=== PATIENT | female | born 1990 | race Caucasian/White ===

== ENCOUNTER 2022-07-01 07:35 | Day surgery (SDC) | payer OTHER, SELFPAY ==
[2022-07-01] VITALS (12 sets, daily range): BP systolic 106–136; BP diastolic 58–84; PULSE 70–116; RESP 16; TEMP 36.6–36.9; O2SAT 93–99; BMI 37.2
[2022-07-01 07:54] LABS: Ur HCG Qualitative* Negative (Negative)
[2022-07-01] MEDS: LACTATED RINGERS 1000 ML 1,000 ML 100 ML IV ×2 (08:15→10:30)
[2022-07-01] MEDS: SODIUM CHLORIDE 0.9 % (FLUSH) 10 ML SYRINGE IVF (08:15)
[2022-07-01] MEDS: SCOPOLAMINE 1 MG/3 DAY PATCH 1 PATCH TRANSDERMA (08:25)
[2022-07-01] MEDS: CEFAZOLIN 2 GM INJ IVP (09:15)
[2022-07-01] MEDS: BUPIVACAINE 0.25% 30 ML 4 ML INJECTION (09:38)
--- NOTE | 2022-07-01 11:19 | P.GYNPRC_ITS ---
Procedure Note Date Seen: 07/01/22 Procedure Details: PREOPERATIVE DIAGNOSES: 1. Infertility. 2. Left hydrosalpinx. POSTOPERATIVE DIAGNOSES: 1. Infertility. 2. Left hydrosalpinx. 3. Tortuous right fallopian tube with possible hydrosalpinx. PROCEDURE: 1. Laparoscopy. 2. Lysis of adhesions. 3. Bilateral salpingectomies. 4. Endometrial biopsy. SURGEON: [facility] [employer]: [place]. ANESTHESIA: General endotracheal. COMPLICATIONS: None. ESTIMATED BLOOD LOSS: 10 mL. FINDINGS: Extensive pelvic adhesions involving uterine serosa, sigmoid colon, bilateral ovaries, and bilateral fallopian tubes, obliterating posterior cul-de-sac. Tortuous fallopian tubes bilaterally, folded on each other and tethered with adhesions to uterine serosa, ovaries, and pelvic sidewall. Clubbed end of the left fallopian tube noted, with small paratubal cyst adjacent. Fimbria adherent to right ovary and tethered to the posterior cul-de-sac. Normal-appearing liver, gallbladder, and appendix. Enlarged left ovary containing simple cyst. Bilateral ovaries adherent to posterior uterine serosa and pelvic sidewall. DESCRIPTION OF PROCEDURE: After obtaining informed consent, the patient was taken to the operating room where general anesthesia was obtained without difficulty. She was prepared and draped in the normal sterile fashion in the low dorsal lithotomy position. A Andrade catheter was inserted into the bladder and left to gravity drainage. A medium Graves open-sided speculum was introd uced into the vagina. The cervix was visualized and grasped along its anterior lip with a single-toothed synechia. A Pipelle was gently inserted through the cervical os into the uterine cavity. Sound length was 8 cm. An endometrial sampling was then obtained without difficulty. The cervix was gently dilated to a number 5 Hegar dilator. A Zumi uterine manipulator was placed without difficulty. The tenaculum and speculum were removed. I then changed gloves and my attention was turned to the abdomen. The inferior aspect of the umbilical fold was injected with 0.25% Marcaine plain. A 10 mm vertical incision was then made within the umbilical fold using a scalpel. The subcutaneous tissues were bluntly dissected with a Roseanne clamp to the fascia. The fascia was grasped with 2 small Ehsan clamps and elevated. A direct entry technique was used to place a 5 mm laparoscopic port with CO2 gas set to a 5 mmHg. The trocar was removed leaving the sleeve in place. The CO2 gas flow was turned to high flow to achieve pneumoperitoneum. The 5 mm laparoscope was used then to carefully inspect the abdomen and pelvis with findings noted above. Pictures were taken for documentation purposes. The patient was placed in Trendelenburg positioning. Two additional 5 mm ports were placed in the right and left lower quadrant under direct visualization after first anesthetizing the skin and fascia with 0.25% Marcaine plain. The uterus was elevated using the uterine manipulator. The bowels were gently pushed from the pelvis cephalad. A laparoscopic Metzenbaum scissors was used to gently lyse the filmy adhesions between the sigmoid colon and posterior uterine serosa. As a layer of adhesions was taken down, another layer would come in to view and was also carefully lysed with the Metzenbaum scissors. In this fashion, the sigmoid colon was freed from the uterus and the posterior cul-de-sac was visualized. Both fallopian tubes were noted to be mildly dilated, tortuous with multiple bends, completely adherent to the uterine serosa and the underlying ovary as well as to sigmoid epiploica, and the fimbrial ends could not be not visualized initially. Attention was 1st turned to the right fallopian tube, and the decision was made that the tube would need to be removed. The tube was elevated. Filmy adhesions were carefully lysed. E ventrally, the right ovary became visible, and the fimbrial end of the tube was located, adherent to the right ovary. The fimbria and the remaining fallopian tube was then carefully excised using the Olympus Powerseal, while keeping the right infundibulopelvic ligament and right ovarian ligament in view. The tube was transected at the right uterine cornua and removed through the right lower quadrant port site. The right lower quadrant port was replaced in the abdomen. Attention was then turned to the left fallopian tube. Again, the Metzenbaum scissors was used to lyse adhesions in order to free the tube. Adhesions were also completely encompassing the left ovary, so those adhesions were carefully taken down as well. Ultimately, the clubbed end of the left fallopian tube was identified, with an adjacent paratubal cyst. The paratubal cyst and tube were elevated with a graspers, and the Olympus Powerseal was used to gently excise the entire tube, finally transecting it from the left cornua. Great care was taken to avoid the left infundibulopelvic ligament and left ovarian ligament in order to preserve blood supply to the ovary. The tube and paratubal cyst removed through the right quadrant port site, and the port was once again replaced into the abdomen. The abdomen and pelvis were then copiously irrigated with warmed normal saline. There was a little bit of active oozing noted from the adhesions on the uterine serosa. These were controlled with the bipolar electrocautery using the Olympus Powerseal. All instruments were then removed under direct visualization. Pneumoperitoneum was allowed to escape. The skin at all 3 port sites was closed in a subcuticular fashion with 4-0 Vicryl. Exofin was then placed over the incisions. The uterine manipulator and Andrade catheter were removed. The patient tolerated the procedure well. Sponge, lap, and needle counts were correct x2. The patient was taken to the recovery room awake and in stable condition.
[2022-07-01] MEDS: HYDROmorphone 0.5 mg/0.5 ml inj IVP (11:29)
--- NOTE | 2022-07-01 11:30 | W.ANESCHARGE ---
Anesthesia Charges Start Date/Time Anesthesia Start Date: 07/01/22 Anesthesia Start Time: 09:04 Stop Date/Time Anesthesia Stop Date: 07/01/22 Anesthesia Stop Time: 11:30
--- NOTE | 2022-07-01 11:31 | W.ANESCHARGE ---
Anesthesia Charges Start Date/Time Anesthesia Start Date: 07/01/22 Anesthesia Start Time: 09:04 Stop Date/Time Anesthesia Stop Date: 07/01/22 Anesthesia Stop Time: 11:30
[2022-07-01] MEDS: fentaNYL 100 MCG/2 ML inj 50 MCG IVP (11:42)
[2022-07-01] MEDS: ONDANSETRON 2 MG/ML inj 4 MG IVP (11:55)
[2022-07-01] MEDS: METOCLOPRAMIDE HCL 5 MG/ML INJ 10 MG IVP (12:50)
[2022-07-01] MEDS: OXYCODONE 5 MG TABLET PO (13:00)
== END 2022-07-01 13:10 | disposition home or self-care (01) ==
PROVIDERS: PCP Family Medicine; Visit Provider Obstetrics & Gynecology
PROC: (CPT 58661; principal; 2022-07-01 09:00)
DX: N97.9 Female infertility, unspecified (principal); N70.11 Chronic salpingitis; N73.6 Female pelvic peritoneal adhesions (postinfective); N83.8 Other noninflammatory disorders of ovary, fallopian tube and broad ligament
CPT/HCPCS: 58661; 58100; 00840; 00851; 81025; 88305; A9270; J0330; J0690; J1100; J1170; J1885; J2250; J2370; J2405; J2704; J2765; J3010; J3490; J7120

== ENCOUNTER 2022-12-31 07:37 | Emergency (ER) | payer OTHER, SELFPAY ==
[2022-12-31 07:42] VITALS: BP 126/85; PULSE 85; RESP 18; TEMP 36.1; O2SAT 98; BMI 33.7
--- NOTE | 2022-12-31 08:13 | ED_ITS ---
HPI - General Adult General Time Seen by Provider: 08:13 Date Seen: 12/31/22 Chief complaint: Diarrhea Stated complaint: flu like symptoms Time Seen by Provider: 12/31/22 08:00 Source: patient Mode of arrival: ambulatory Limitations: no limitations History of Present Illness HPI narrative: Patient is a 30-year-old female who is a first-time patient by IVF from a clinic in [place]. She is going to see Dr. Capps for OB care. The patient reports just general malaise, some loose stools, a couple episodes of vomiting over the last couple of days. She has not any shortness of breath, or chest pain, no upper respiratory symptoms. She had no blood in her stool. No vaginal bleeding. She reports that her date of implantation of conception based on IVF was November 29 which puts her at 6+ 4 days estimated gestational age. Patient has had no other symptoms at this time, no leg swelling. She is afebrile. Related Data Home Medications Medication Instructions Recorded Confirmed cetirizine 10 mg capsule (Zyrtec) 10 mg PO QDAY PRN 01/10/22 12/31/22 apple cider vinegar 500 mg tablet mg PO 06/13/22 07/11/22 cholecalciferol (vitamin D3) 125 125 mcg PO QDAY 06/13/22 12/31/22 mcg (5,000 unit) capsule citalopram 10 mg tablet 10 mg PO QDAY 06/13/22 12/31/22 inositol 2,000 mg-D chiro inositol ea PO 06/13/22 07/11/22 50 mg oral powder packet (Ovasitol) mecobalamin (vitamin B12) 1,000 1,000 mcg PO QDAY 06/13/22 07/11/22 mcg chewable tablet (B12 Active) melatonin 5 mg capsule 5 mg PO QHS 06/13/22 07/11/22 omeprazole 20 mg capsule,delayed 20 mg PO BID 06/13/22 12/31/22 release prenat.vits,mayco,[id number]-[id number] 1 tab PO QDAY 06/13/22 12/31/22 fluticasone propionate 50 1 spray intranasal BID 06/27/22 07/11/22 mcg/actuation nasal spray,suspension desogestrel 0.15 mg-ethinyl 1 tab PO DAILY 12/31/22 12/31/22 estradiol 0.03 mg tablet (Apri) estradiol 2 mg tablet PO 12/31/22 Previous Rx's Medication Instructions Recorded ondansetron 4 mg disintegrating 4 mg PO Q6H PRN nausea and 12/30/22 tablet vomiting #30 tabs Allergies Allergy/AdvReac Type Severity Reaction Status Date / Time amoxicillin Allergy Intermediate Hives Verified 07/11/22 09:49 Review of Systems Status of ROS: Reports: 6 or more systems reviewed and unremarkable except as noted in History and below [facility] History Hydrosalpinx ?N70.11 - Chronic salpingitis (ICD-10) PHILIP (obstructive sleep apnea) ?G47.33 - Obstructive sleep apnea (adult) (pediatric) (ICD-10) History of PID ?Z87.42 - Personal history of other diseases of the female genital tract (ICD-10) History of chlamydia infection ?Z86.19 - Personal history of other infectious and parasitic diseases (ICD- 10) Surgical History History of laparoscopy (07/01/22) ?Z98.890 - Other specified postprocedural states (ICD-10) H/O wisdom tooth extraction ?K08.409 - Partial loss of teeth, unspecified cause, unspecified class (ICD- 10) History of nasal septoplasty (04/2022) ?Z98.890 - Other specified postprocedural states (ICD-10) Family History Father Coronary artery disease High blood pressure High cholesterol Mother High blood pressure High cholesterol Maternal Grandfather Coronary artery disease Thyroid disease High cholesterol Diabetes Colon cancer Uncle Stroke Aunt Uterine cancer Thyroid disease Diabetes Paternal Grandmother Lung cancer Maternal Grandmother Parkinson's disease Myasthenia gravis Muscular dystrophy 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 Narrative: , 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 Highest level of school completed/degree received: Associate degree: occupational, technical, vocational program Smoking Status: Former smoker How often do you have a drink containing alcohol: 2-4 times a month Alcohol type: hard liquor How many standard drinks containing alcohol do you have on a typical day: 3 or 4 AUDIT-C Alcohol total score: 3 Non-prescribed substance use: denies use Caffeine: Yes (COFFEE DAILY) Do you think of yourself as: straight/heterosexual Gender Identity: female Are you currently sexually active: Yes In the past 12 months, how many sex partners have you had: one Are you using contraception or practicing any form of control: No Exam Narrative: Exam Narrative: Objective: Vital signs as above Alert orient x3, noncyanotic No scleral icterus Abdomen soft benign nontender Extremities are no edema Neurologic grossly nonfocal Const: Vital Signs, click to edit/add: Vital Signs - 24 hr 12/31/22 07:42 Temperature 97.0 F L Pulse Rate [Right Pulse Oximeter] 85 Respiratory Rate 18 Blood Pressure [Ri ght Upper Arm] 126/85 Pulse Oximetry 98 Oxygen Delivery Me thod Room Air Course Vital Signs Vital signs: Initial Vital Signs Temperature 97.0 F L 12/31/22 07:42 Temperature Source Temporal Artery Scan 12/31/22 07:42 Pulse Rate 85 12/31/22 07:42 Respiratory Rate 18 12/31/22 07:42 Blood Pressure 126/85 12/31/22 07:42 Blood Pressure Mean 98 12/31/22 07:42 Blood Pressure Position Sitting 12/31/22 07:42 Pulse Oximetry 98 12/31/22 07:42 Oxygen Delivery Method Room Air 12/31/22 07:42 Vital Signs Temperature 97.0 F L 12/31/22 07:42 Pulse Rate 85 12/31/22 07:42 Respiratory Rate 18 12/31/22 07:42 Blood Pressure 126/85 12/31/22 07:42 Pulse Oximetry 98 12/31/22 07:42 Oxygen Delivery Method Room Air 12/31/22 07:42 Temperature 97.0 F L 12/31/22 07:42 Pulse Rate 85 12/31/22 07:42 Respiratory Rate 18 12/31/22 07:42 Blood Pressure 126/85 12/31/22 07:42 Pulse Oximetry 98 12/31/22 07:42 Oxygen Delivery Method Room Air 12/31/22 07:42 Medical Decision Making MDM Narrative Medical decision making narrative: 32-year-old female with IVF and about 6+ 4 weeks estimated gestational age by date of conception. 2 day history of body aches flu-like symptoms, nausea, a couple episodes of vomiting. Patient does have Zofran at home but has not used it per nursing staff. The patient does not feel extremely nauseated right now. Her clinic was concerned about dehydration. Will get her a L of IV fluid, check her labs, check a COVID/influenza/RSV. Given her dates I think continuing her ultrasound follow-up in a week would be reasonable. Update her regular clinic in the next couple of days as to how she is feeling and doing will look at her labs and see how she is doing after some fluid. She has no ill contacts at home. The patient will sign a release of information so all information could be forwarded to her infertility physician. Addendum 9:20 a.m.: Patient feels better after 1 bag of normal saline, I think a 2nd bag would be helpful to her. Will let her have some orange juice and crackers. She has not thrown up. Her lab studies look reassuring, including her viral studies look negative. She should update her regular IVF clinic in the next 24 hours, and get recommendations on medications and ongoing care. She was comfortable this. Lab Data Labs: Lab Results 12/31/22 12/31/22 Range/Units 08:15 Unknown WBC 9.43 (4.50-11.00) K/uL RBC 4.66 (4.00-5.20) m/uL Hgb 12.7 (12.0-16.0) gm/dL Hct 39.1 (33.0-51.0) % MCV 84 (80-100) fL MCH 27 (26-34) pg MCHC 33 (32-36) gm/dL RDW Coeff of Beth 13.1 (11.5-15.5) % Plt Count 285 (140-440) K/uL Neut % (Auto) 75.8 H (42.0-72.0) % Lymph % (Auto) 18.6 L (20-44) % [place] % (Auto) 4.5 (0.0-11.0) % Eos % (Auto) 0.6 (0.0-7.0) % Baso % (Auto) 0.4 (0.0-3.0) % Neut # (Auto) 7.10 H (1.7-7.0) K/uL Lymph # (Auto) 1.80 (0.90-2.90) K/uL [place] # (Auto) 0.40 (0.00-0.90) K/UL Eos # (Auto) 0.06 (0.00-0.50) K/uL Baso # (Auto) 0.04 (0.00-0.30) K/uL Abs Immat Gran (auto) 0.01 (0.00-0.30) K/uL Imm/Tot Granulo (auto) 0.1 % Sodium 136 (135-149) mmol/L Potassium 3.8 (3.6-5.1) mmol/L Chloride 104 (96-114) mmol/L Carbon Dioxide 21 (20-32) mmol/L Anion Gap 11 (7-15) mEq/L BUN 7 (5-24) mg/dL Creatinine 0.6 (0.5-1.5) mg/dL Estimated Creat Clear 111.35 Estimated GFR 122 ml/min Glucose 117 H (60-115) mg/dL Calcium 9.7 (8.4-10.6) mg/dL SARS-CoV-2 (PCR) Negative SARS-CoV-2 (Negative) Influenza Type A (PCR) Negative PCR FLU A (Negative) Influenza Type B (PCR) Negative PCR FLU B (Negative) RSV (PCR) Negative PCR RSV (Negative) Discharge Plan Discharge Clinical Impression: Diarrhea, Patient Disposition: Home w/ Parent or Adult Condition: Improved Additional Instructions: Update OB Clinic in the next couple of days with symptoms, continue ultrasound is planned. Light activity, light diet, push fluids, Zofran as needed. Return if problems or concerns. Continue home medications Activity Level: Light activity Discharge Diet: Regular Prescriptions: No Action Zyrtec 10 mg capsule 10 mg PO QDAY PRN omeprazole 20 mg capsule,delayed release(DR/EC) 20 mg PO BID citalopram 10 mg tablet 10 mg PO QDAY melatonin 5 mg capsule 5 mg PO QHS prenat.vits,mayco,[id number] Tablet 1 tab PO QDAY cholecalciferol (vitamin D3) 125 mcg (5,000 unit) capsule 125 mcg PO QDAY Ovasitol 2,000-50 mg powder in packet PO apple cider vinegar 500 mg tablet PO mecobalamin (vitamin B12) [B12 Active] 1,000 mcg tablet,chewable 1,000 mcg PO QDAY fluticasone propionate 50 mcg/actuation spray,suspension 1 spray INTRANASAL BID desogestrel-ethinyl estradiol [Apri] 0.15-0.03 mg tablet 1 tab PO DAILY estradiol 2 mg tablet PO ondansetron 4 mg tablet,disintegrating 4 mg PO Q6H PRN (Reason: nausea and vomiting) Qty: 30 1RF Follow Up/Referrals: Sarah Gilliam MD [Primary Care Provider] - Stand Alone Forms: Jascha Info Instructions
[2022-12-31 08:22] LABS: Basophils Absolute Auto 0.04 K/uL (0.00-0.30); Basophils Percent Auto 0.4 % (0.0-3.0); Eosinophils Absolute Auto 0.06 K/uL (0.00-0.50); Eosinophils Percent Auto 0.6 % (0.0-7.0); Hematocrit 39.1 % (33.0-51.0); Hemoglobin* 12.7 gm/dL (12.0-16.0); Immature Granulocytes Abs Auto 0.01 K/uL (0.00-0.30); Immature Granulocytes Pct Auto 0.1 %; Lymphocytes Percent Auto 18.6 % (20-44); Mean Corpuscular HGB Conc 33 gm/dL (32-36); Mean Corpuscular Hemoglobin 27 pg (26-34); Mean Corpuscular Volume 84 fL (80-100); Monocytes Percent Auto 4.5 % (0.0-11.0); Neutrophils Percent Auto 75.8 % (42.0-72.0); Platelet Count* 285 K/uL (140-440); RDW Coefficient of Variation % 13.1 % (11.5-15.5); Red Blood Count 4.66 m/uL (4.00-5.20); White Blood Count* 9.43 K/uL (4.50-11.00)
[2022-12-31] MEDS: 0.9 % SODIUM CHLORIDE 1000 ml 1,000 ML 6000 ML IV ×2 (08:26→09:24)
[2022-12-31 08:28] LABS: Slide Review Reflex No
[2022-12-31 08:34] LABS: Chloride* 104 mmol/L (96-114); Sodium* 136 mmol/L (135-149)
[2022-12-31 08:35] LABS: Potassium* 3.8 mmol/L (3.6-5.1)
[2022-12-31 08:37] LABS: Creatinine* 0.6 mg/dL (0.5-1.5); Est. Creatinine Clearance* 111.35; Estimated Glomerular Filt Rate 122 ml/min
[2022-12-31 08:38] LABS: Anion Gap 11 mEq/L (7-15); Blood Urea Nitrogen* 7 mg/dL (5-24); Calcium* 9.7 mg/dL (8.4-10.6); Carbon Dioxide* 21 mmol/L (20-32); Glucose* 117 mg/dL (60-115)
[2022-12-31 09:05] LABS: PCR FLU A Negative PCR FLU A (Negative); PCR FLU B Negative PCR FLU B (Negative); PCR RSV Negative PCR RSV (Negative)
[2022-12-31 09:13] LABS: SARS PCR* Negative SARS-CoV-2 (Negative)
== END 2022-12-31 10:06 | disposition home or self-care (01) ==
PROVIDERS: Emergency Provider Family Medicine; PCP Family Medicine
DX: R19.7 Diarrhea, unspecified (principal); Z3A.01 Less than 8 weeks gestation of pregnancy
CPT/HCPCS: 36415; 80048; 85025; 87631; 96360; 99283; 99284; J7030

== ENCOUNTER 2023-01-23 07:09 | Outpatient (CLI) | payer OTHER, SELFPAY ==
--- NOTE | 2023-01-23 07:15 | CRLHL7_ITS ---
For Patients: As a result of the Cures Act, medical imaging exams and procedure reports are released immediately into your electronic medical record. You may view this report before your referring provider. If you have questions, please contact your health care provider. INDICATION: First trimester scan, establish dates. COMPARISON: None. TECHNIQUE: Real-time العراقي-scale imaging of the pelvis was performed. FINDINGS: Sonographic imaging demonstrates a single living intrauterine gestation. The embryo demonstrates a regular cardiac rate measuring 176 beats per minute. The embryo`s crown-rump length measurement of 3.1 cm corresponds to a gestational age of 10 weeks 0 days with a sonographic due date of 08/21/2023. There is a normal-appearing yolk sac. There are no gross abnormalities noted within the embryo at this early state of development. The gestational sac has a normal appearance. There is no evidence of a perigestational hemorrhage. The amount of fluid within the sac appears appropriate for gestational age. The cervix is closed. The myometrium appears normal. Left adnexal mass is present measuring 5.7 x 3.5 x 4.3 cm which demonstrates heterogeneous echotexture with areas of increased echogenicity and fluid echogenicity containing reticular echoes. This likely represents the left ovary with a dermoid cyst and hemorrhagic cyst. The right ovary is normal. IMPRESSION: Single living intrauterine with sonographic gestational age 10 weeks 0 days and sonographic due date of 08/21/2023. Left adnexal mass likely represents an enlarged ovary with hemorrhagic cyst and possible dermoid cyst. Dictated by Shashank Fernández MD @ 01/23/2023 10:55:30 AM (Electronically Signed)
== END 2023-01-23 07:10 | disposition home or self-care (01) ==
LOC: US 07:10
PROVIDERS: PCP Family Medicine; Visit Provider Registered Nurse
DX: Z34.91 Encounter for supervision of normal pregnancy, unspecified, first trimester (principal); Z3A.09 9 weeks gestation of pregnancy
CPT/HCPCS: 76817; 86592; 86703; 86704; 86706; 86762; 86787; 86803; 86850; 86900; 86901; 87086; 87340; 87491; 87591

== ENCOUNTER 2023-02-20 09:24 | Outpatient (CLI) | payer OTHER, SELFPAY | END 2023-02-20 09:25 | disposition home or self-care (01) | LOC: NFLDREF 09:25 | PROVIDERS: PCP Family Medicine; Visit Provider Obstetrics & Gynecology | DX: R35.0 Frequency of micturition (principal) | CPT/HCPCS: 87086 ==

== ENCOUNTER 2023-08-16 16:56 | Inpatient (IN) | payer OTHER, SELFPAY ==
--- OUTSIDE RECORDS SUMMARY | 2023-08-16 16:54 | XMS_ITS | Referral Summary ---
Author Name Unknown Organization [facility] Address [address] [place] [id number] Care Team Providers Care Accounting Practice Manager Name Role Phone System, Provider Not In Primary Care Provider Un available 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 Tobacco Use Types Packs/Day Years Used Date Smoking Tobacco: Never Assessed Adolescent Education Answer Date Record ed Getting School Help Needed Not on file 01/10 Sex and Gender Information Value Date Recorded Sex Assigned at Not on file Gender Identity Not on file Sexual Orientation Not on file Plan of Treatment Not on file Care Teams Accounting Practice Manager Relationship Specialty Start Date End Date System, Provider Not In PCP - General Clinic 05/19/22
--- OUTSIDE RECORDS SUMMARY | 2023-08-16 16:54 | XMS_ITS | Clinical Summary ---
Author Name Unknown Organization [facility] Address [place], [place] [address] Care Team Providers Care Pleating Supervisor Name Role Phone Tawana, Sarah Devlin MD Primary Care Provider Nacho Leiva MD Unavailable [phone] Anu Vaz MD Unavailable Allergies Active Allergy Reactions Criticality Noted Date Comments Amoxicillin Hives 11/14/2005 Medications Medication Sig Dispensed Refills Start Date End Date Status cetirizine (ZYRTEC) 10 mg tablet Take 1 tablet by mouth once daily. 0 05/21/2016 Active omeprazole (PRILOSEC) 20 mg Delayed-Release capsuleIndications:G astroesophageal reflux disease, unspecified whether esophagitis present Take 1 Capsule (20 mg) by mouth 2 times daily before meals. 180 capsule. 2 07/12/2021 Active fluticasone (50 mcg per actuation) nasal solution (FLONASE)Indications :Nasal obstruction Inhale 1 [place] into affected nostril(s) two times daily. 16 g 6 06/02/2022 Active VIT 10-IRON FUM-FOLIC ORAL Take by mouth. Active cholecalciferol (VITAMIN D3) 5,000 unit capsule Take by mouth. 06/13/2022 Active aspirin chewable 81 mg chewable tablet Chew 81 mg by mouth once daily. Active ondansetron (ZOFRAN ODT) 4 mg disintegrating tabletIndications:Hy peremesis gravidarum Place 1 Tablet (4 mg) on the tongue every 8 hours if needed for Nausea/Vomiting. 30 Tablet 6 04/01/2023 Active citalopram (CELEXA) 20 mg tabletIndications:An xiety state Take 1.5 Tablets (30 mg) by mouth every morning. 135 Tablet 3 06/05/2023 Active Breast Pump PurchaseIndications: Care and examination of lactating mother Electric breast pump for home use. Gestational age at delivery: 39 weeks. Reason for need: return to work. Length of need: 99 months (lifetime use) 1 Each 06/19/2023 Active Active Problems Problem Noted Date Diagnosed Date resulting from ass isted reproductive technology in second trimester 04/24/2023 Obesity during in second trimester 08/2023 In vitro fertilization 04/03/2023 03/24/2023 Overview: Estimated Date of Delivery: 08/22/23 IVF transfer date: 12/04/22 Taking ASA 81 mg GBS- OB Encounter on 07/30/2023 Component Date Value Ref Range Status Vaginal/Rectal OB Strep B PCR 07/30/2023 Positive (A) Final If susceptibility is needed due to penicillin allergy, contact lab. CULTURE 07/30/2023 RESULT (A) Final CULTURE 07/30/2023 4+ Streptococcus agalactiae (Strep Group B) Final Susceptibility Streptococcus agalactiae (Strep Group B) Not Specified AMPICILLIN <=0.25 S CEFTRIAXONE <=0.12 S CLINDAMYCIN <=0.25 S PENICILLIN <=0.06 S VANCOMYCIN 0.5 S 28wk labs- GLUCOSE,GESTATIONAL Date Value Ref Range Status 05/08/2023 132 70 - 139 mg/dL Corrected Comment: This is a corrected result. Previously reported as 170 mg/dL with reference range 70-139 mg/dL on 05/08/2023 at 11:09 AM COMMERCIAL INTERN HEMOGLOBIN Date Value Ref Range Status 05/08/2023 10.6 (L) 12.0 - 16.0 g/dL Final TREPONEMA PALLIDUM Date Value Ref Range Status 05/08/2023 Non-Reactive Non-Reactive Final Last Tdap- 06/19/23 Last Flu vaccine- 01/23/23 OB Labs: Done at [facility] 01/23/23 B pos Antibody neg Rubella immune Varicella immune Hep B neg Hep C neg HIV neg RPR non-reactive UA/UC neg Hgb 12.2 Plt 283 GC/Chlamydia not done Allergies Allergen Reactions Amoxicillin Hives OB History Para Term AB Living 1 0 0 0 0 0 SAB IAB Ectopic Multiple Live Births 0 0 0 0 0 # Outcome Date GA Lbr Jose/2nd Weight Sex Delivery Anes PTL Lv 1 Current Past Medical History: . Date Anxiety state, unspecified 11/14/2005 Depression GERD (gastroesophageal reflux disease) 06/02/2014 EGD 05/2014 normal Infertility, female PID (pelvic inflammatory disease) 2013 STD (sexually transmitted disease) 2011 chlamydia Urinary tract infection Past Surgical History: . Laterality Date ESOPHAGOGASTRODUODENOSCOPY 05/2014 loose LES, mild reflux esophagitis, hiatal hernia ESOPHAGOGASTRODUODENOSCOPY 02/2019 Normal SALPINGECTOMY Bilateral 06/2022 left hydrosalpinx, possible right hydrosalpinx, endometrial bx, lysis of adhesions SEPTOPLASTY Bilateral 04/20/2022 also turbinate reduction WISDOM TEETH EXTRACTION 2008 XR HYSTEROSALPINGOGRAM Bilateral 05/19/2022 findings of left distal hydrosalpinx Problems (from 03/20/23 to present) No problems associated with this episode. Dory Joseph RN ....03/24/2023 3:05 PM [facility] Supervision of high-risk 3 Overview: Ewa L Rubio : 1990 [facility] ULTRASOUND/TESTING PATIENT Support person name: Tres ULTRASOUND TYPE: Follow up growth US and complete anatomy ( following views which were not well seen NB, profile, right leg profile, placental cord insertion, RVOT, 3VT, CSP, face, 4CH, ACI ) REASON FOR VISIT: IVF, BMI >30 NEXT VISIT ALERTS: Final BURT by IVF LMP Date: 11/15/22 BURT: 08/22/23 Early US: Date: 01/23/23 GA: 10w0d BURT: 08/20/13 IVF Date: FET on 12/04/22 - BURT 08/22/23 PrePregnancy Weight: 195 Height: 5'3 BMI: 34.5 PLANS & FUTURE APPOINTMENTS: ULTRASOUND/GROWTH PLAN: - Growth: Next 04/24/22 TESTING PLAN: Weekly testing at 36 weeks - Testing: Through DELIVERY PLAN: - Scheduled delivery: - Preferred delivery location: PRIMARY DIAGNOSIS: 32 y.o. Estimated Date of Delivery: 07/23/23 IVF MATERNAL Obstructive sleep apnea BMI 36 PREVIOUS ULTRASOUNDS: Next: 04/24/23 04/03/23 19w6d EFW 345 grams, percentile: 66 , limited views 01/23/23 (10w0d) EDC 08/21/23 ECHO: REFERRING PHYSICIAN/PHONE/LAST UPDATE: Anu Vaz MD - [place] Primary MD approves scheduling of recommended ultrasounds/testing: Not specified SPECIALISTS/CONSULTS: Include: Specialty MD Clinic Name Phone# [place] and ADDED TO PATIENT CARE TEAM Yes GENETICS: Declines/Not Done (no records on PGT?) CARE COORDINATION: PERTINENT LABS: Labs reviewed? Normal? Blood type: No results found in past 5 years Antibody screen: No results found in past 5 years Non-[facility] labs need to be entered in EPIC? PERTINENT MEDS: Citalopram PROCEDURES: PLAN OF CARE: Original and updated POC 04/03/23 Dr. Jenn Cintron RECOMMENDATIONS: - Return to primary provider for continued care. - A follow up ultrasound is recommended in 3 weeks to assess remaining anatomy and growth (will schedule with [facility]) - Recommend weekly testing at 36 weeks for IVF - Consider delivery at 39 weeks due to IVF (risk/benefit discussion with provider suggested) Obesity (BMI 30.0-34.9) 09/16/2022 GERD (gastroesophageal reflux disease) 5 Overview: EGD 05/2014 normal PHILIP 07/01/2011 AHI-5 07/09/2011 Viral warts, unspecified 07/17/2008 Other specified gastritis without mention of hem orrhage 11/14/2005 Anxiety state, unspecified 11/14/2005 Estimated Date of Delivery Comme nts Yes 08/22/2023 Based on Other B asis, Transfer date 12/04/22 Resolved Problems Problem Noted Date Diagnosed Date Resolved Date Depression with anxiety 06/13/201101/18 Encounters Date Type Department Care Team Description 08/13/2023 10:05 AM CDT OB Encounter [facility] [place] [facility] [id number] Sarah Gilliam MD Care (38w 5d/) 08/13/2023 9:00 AM CDT Ancillary Procedure [facility] [place] [facility] [id number] Arrived 08/13/2023 Travel 08/06/2023 10:05 AM CDT OB Encounter [facility] [place] [facility] [address] Sarah Gilliam MD Care (37w 5d/) 08/06/2023 9:00 AM CDT Ancillary Procedure [facility] [place] [facility] [id number] 08/05/2023 Travel 07/30/2023 10:05 AM CDT OB Encounter [facility] [place] [address] Sarah Gilliam MD Care (36w 5d) 07/30/2023 9:00 AM CDT Ancillary Procedure [facility] [place] [facility] [place] [address] 07/30/2023 Travel 07/22/2023 3:40 PM CDT OB Encounter [facility] [place] [facility] [address] Sarah Gilliam MD Care (35w 4d/Low back stuff and cramping; not every day. No discharge or bloody show) 07/22/2023 1:00 PM CDT Ancillary Procedure [facility] [place] [facility] [id number] 07/22/2023 Travel 07/03/2023 1:10 PM CDT OB Encounter [facility] [address] [facility] [address] Sarah Gilliam MD Care (32w 6d) 07/03/2023 Travel 07/01/2023 Travel 06/19/2023 11:45 AM COMMERCIAL INTERN OB Encounter [facility] [address] [facility] [address] Sarah Gilliam MD Care (30wk 6d/Heart burn, take Prilosec twice a day/Feeling a bit more restless) 06/19/2023 Travel 06/05/2023 10:05 AM COMMERCIAL INTERN OB Encounter [facility] [address] [facility] [place] [address] Sarah Gilliam MD Care (28w 6d/Currently has a bit of a cold; in regards to TDaP) 06/04/2023 Travel from Last 3 Months Immunizations Name Administration Dates Next Due COVID-19 vaccine (Moderna 100mcg/0.5mL) PF, MDV 06/12/2020,05/15/2020 DTP 08/04/1995, 2,01/17/1991,11/12,1990 HIB PRP-OMP (PedvaxHIB) 11/07/1991,01/17,1990,08/30 Hepatitis B (Adult) 09/16/2017 Hepatitis B (Peds) 06/06/2002,12/14/2001, 002 Human Papilloma Virus Vaccine 07/15/2007, 007,11/27/2006 Influenza Virus, Unspecified 02/11/2022 Influenza, IIV3 (Age >=3 years) 02/07/2013,02/05,03/22/2008 Influenza, IIV4 01/23/2023, 2,12/28/2019,01/20,01/22/2018,12/31/2015,02/08/2015 ,01/27/2014 Influenza, IIV4 (=>6mos) MDV 12/23/2016 Influenza,LAIV4 Live Intrana june (Flumist) 03/05/2009 MMR 11/11/2001,11/07/1991 Meningococcal Vaccine (Menactra) 11/18/2007 Oral Polio Vaccine 08/04/1995, 2,01/17/1991,11/12,1990 Td (Age >=7 Years) 11/11/2001 Tdap 06/19/2023,03/16/2017,11/18/2007 Tuberculin (PPD) 03/08/2021,01/22/2018 Family History Medical History Relation Name Comments Hypertension Brother Sleep apnea Brother Diabetes Father resolved with w eight loss Hypertension Father Valvular heart disease Father valve replacement 10yrs ago Diabetes Maternal Aunt Thyroid Disease Maternal Aunt Uterine cancer Maternal Aunt Cancer-colon Maternal Grandfather Coronary artery disease Maternal Grandfather Dementia Maternal Grandfather Diabetes Maternal Grandfather Hyperlipidemia Maternal Grandfather Thyroid Disease Maternal Grandfather Muscular dystrophy Maternal Grandmother Myasthenia gravis Maternal Grandmother Parkinsonism Maternal Grandmother Stroke Maternal Uncle Hyperlipidemia Mother Hypertension Mother ?? Dementia Paternal Grandfather Lung cancer Paternal Grandmother Polycystic ovary syndrome Sister in fertility Relation Name Status Comments Brother Father Maternal Aunt Maternal Grandfather Maternal Grandmother Maternal Uncle Mother Paternal Grandfather Paternal Grandmother Sister 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 Tobacco Use Types Packs/Day Years Used Date Smoking Tobacco: Former Cigarettes 0.5 7 0 04/20/2007 - 04/20/2014 Smokeless Tobacco: Never Tobacco Cessation:Counseling Given: Not Answered Alcohol Use Standard Drinks/Week Comments Not Currently 10 (1 standard drink = 0.6 oz pu re alcohol) occasional PHQ-2 Answer Date Recorded PHQ-2 TOTAL SCORE 0 02/20/2023 Social Connections Answer Date Recorded Frequency of Communication with Friends and Fami ly 0 07/22/2023 Financial Resource Strain Answer Date R ecorded Difficulty of Paying Living Expenses 3 07/22/2023 Difficulty of Paying Living Expenses Not on file 07/22/2023 Food Insecurity Answer Date Recorded Worried About Running Out of Food in the Last Ye ar 1 07/22/2023 Transportation Needs Answer Date Record ed Lack of Transportation (Medical) 1 07/22/2023 Housing Stability Answer Date Recorded Unable to Pay for Housing in the Last Year 1 07/22/2023 Estimated Date of Delivery Comme nts Yes 08/22/2023 Based on Other B asis, Transfer date 12/04/22 Sex and Gender Information Value Date Recorded Sex Assigned at Female 03/19/2021 7:34 AM COMMERCIAL INTERN Gender Identity Female 03/19/2021 7:34 AM COMMERCIAL INTERN Sexual Orientation Straight 03/19/2021 7: 34 AM COMMERCIAL INTERN Obstetrics History Para Term AB IAB SAB Ectopic Multiple Livin g Live Births 1 Date Outcome GA Total Labor Labor/2nd/3rd Weight Sex Delivery Anes PTL Amina A1 A5 Name Cl in Current Summary Episode Dates Number of Fetuses Estimated Date of Delivery 03/20/2023 - Present (08/16/2023) 08/22/2023 (set by Dory Joseph RN on 03/20/2023 based on Other Basis) Dating Summary Based On BURT GA Diff Other Basis 08/22/2023 Working Comment:Transfer date 3 Last Menstrual Period on 08/27/2022 (Exact Date) 06/03/2023 +11w3d Alternate BURT Entry 07/23/2023 +4w2d Comment:Date entered prior t o episode creation Vitals Date GA Fund Present FHR Mvmt BP Weight Edema Alb Glu Ket Dil/ Eff/Sta 3 19w6d Inpatient data not displayed here. See encounter summary. 4 22w6d Inpatient data not displayed here. See encounter summary. Notes Progress Notes - OB Encounte r - 08/13/2023 - GA:38w5d 08/13/2023 - 38w5d - Sarah Gilliam MD SUBJECTIVE: Ewa Bergeron is a 33 y.o. female at 38+5 weeks. No concerns. See visit comments. OBJECTIVE: see OB vitals flow sheet ASSESSMENT : 38+5 weeks gestation IVF Maternal obesity PLAN: Labor signs and symptoms reviewed with patient including painful regular contractions or leaking fluid. Induction scheduled for Thursday. Sarah Gilliam MD .................... 08/13/2023 10:00 AM Progress Notes - OB Encounte r - 08/06/2023 - GA:37w5d 08/06/2023 - 37w5d - Sarah Gilliam MD SUBJECTIVE: Ewa Bergeron is a 33 y.o. female at 37+5 weeks. No concerns. See visit comments. OBJECTIVE: see OB vitals flow sheet BPP 6/8 (no breathing) NST baseline 140 bpm with moderate variability, no decelerations, + accelerations to 165 bpm Tocometer quiescent ASSESSMENT : 37+5 weeks gestation IVF Maternal obesity +GBS (culture pending) PLAN: Labor signs and symptoms reviewed with patient including painful regular contractions, bleeding or leaking fluid. RTC 1 weeks. 39 week induction scheduled for 08/15, will check cervix and make final plans next week. Sarah Gilliam MD .................... 08/06/2023 10:44 AM Progress Notes - OB Encounte r - 07/30/2023 - GA:36w5d 07/30/2023 - 36w5d - Sarah Gilliam MD SUBJECTIVE: Ewa Bergeron is a 33 y.o. female at 36+5 weeks. No concerns. See visit comments. OBJECTIVE: see OB vitals flow sheet BPP 6/8, with reactive NST 8/10 NST with baseline 140 bpm with moderate variability and accelerations to 175 no decelerations. Tocometer quiescent. ASSESSMENT : 36+5 weeks gestation IVF obesity PLAN: Labor signs and symptoms reviewed with patient including painful regular contractions or leaking fluid. GBS completed today. RTC 1 weeks with BPP. Discussed options for induction at 39-40 weeks per perinatology recommendations. . Sarah Gilliam MD .................... 07/30/2023 12:24 PM Progress Notes - OB Encounte r - 07/22/2023 - GA:35w4d 07/22/2023 - 35w4d - Sarah Gilliam MD SUBJECTIVE: Ewa Bergeron is a 33 y.o. female at 34+4 weeks. Having occasional cramping/low back pain. No concerns. See visit comments. OBJECTIVE: see OB vitals flow sheet US-- weight 2552 g (31%) ASSESSMENT : 34+4 weeks gestation with no complications Maternal obesity IVF PLAN: labor signs and symptoms reviewed with patient including pain, cramping, bleeding or leaking fluid. RTC 1 weeks with GBS. Sarah Gilliam MD .................... 07/22/2023 4:15 PM Progress Notes - OB Encounte r - 07/03/2023 - GA:32w6d 07/03/2023 - 32w6d - Sarah Gilliam MD SUBJECTIVE: Ewa Bergeron is a 32 y.o. female at 32+6 weeks. No concerns. See visit comments. OBJECTIVE: see OB vitals flow sheet ASSESSMENT : 32+6 weeks gestation with no complications Obesity IVF PLAN: labor signs and symptoms reviewed with patient including pain, cramping, bleeding or leaking fluid. RTC 2 weeks. Will start weekly monitoring with BPPs &Growth ultrasound with next visit. Sarah Gilliam MD .................... 07/03/2023 4:51 PM Progress Notes - OB Encounte r - 06/19/2023 - GA:30w6d 06/19/2023 - 30w6d - Sarah Gilliam MD SUBJECTIVE: Ewa Bergeron is a 32 y.o. female at 30+6 weeks. Struggling with reflux, espcially at night. Is eating dinner early, sleeping upright. She has a known hiatal hernia. See visit comments. OBJECTIVE: see OB vitals flow sheet ASSESSMENT : 30+6 weeks gestation IVF Obesity. PLAN: labor signs and symptoms reviewed with patient including pain, cramping, bleeding or leaking fluid. TDaP given today. Discussed management of reflux for remainder of , may want to see a surgeon post . RTC 2 weeks. Growth ultrasound at 35 weeks and weekly BPPs starting 36 weeks. Likely induction ~39 weeks. Sarah Gilliam MD .................... 06/19/2023 11:49 AM ERCIAL INTERN [facility] GA:28w6d 06/05/2023 - 28wd - Sarah Gilliam MD SUBJECTIVE: Ewa Bergeron is a 32 y.o. female at 28+6 weeks. Developed URI symptoms the last couple days. No fevers. She increased citalopram to 30 mg/day and is feeling that her anxiety has improved. No other concerns. See visit comments. OBJECTIVE: see OB vitals flow sheet ASSESSMENT : 28+6 weeks gestation Obesity, IVF , Anxiety, increased citalopram to 30 mg/day PLAN: labor signs and symptoms reviewed with patient including pain, cramping, bleeding or leaking fluid. RTC 2 weeks with TDaP since she is sick today. Schedule out remaining Ob visits, will get growth US with 35 week appointment adn BPPs weekly starting at 36 weeks., Sarah Gilliam MD .................... 06/05/2023 10:16 AM ERCIAL INTERN [facility] GA:24w6d 05/08/2023 - 24w6d - Sarah Gilliam MD SUBJECTIVE: Ewa Bergeron is a 32 y.o. female at 24+6 weeks. No concerns. Urinary frequency is resolved and UA/culture is negative. See visit comments. OBJECTIVE: see OB vitals flow sheet ASSESSMENT : 24+6 weeks gestation with no complications Maternal obesity PLAN: labor signs and symptoms reviewed with patient including pain, cramping, bleeding or leaking fluid. RTC 4 weeks with TDaP. Will plan on growth scan at 34 weeks and weekly BPPs starting at 36 weeks. Sarah Gilliam MD .................... 05/08/2023 10:41 AM ERCIAL INTERN Progress Notes - OB Encounte r - 04/10/2023 - GA:20w6d 04/10/2023 - 20w6d - Sarah Gilliam MD FIRST OB VISIT HPI: Ewa Bergeron is a 32 y.o. female at 20w6d with ojeda intrauterine here today for a initial OB exam after transferring care from [facility]. Estimated due date is Estimated Date of Delivery: 08/22/23 based on embryo transfer. Had a dermoid vs hemorrhagic cyst on initial OB ultrasound. Initially she was having discomfort, but not any more. Just had level 2 ultrasound with [facility] and they did not remark on it. RECOMMENDATIONS: - Return to primary provider for continued care. - A follow up ultrasound is recommended in 3 weeks to assess remaining anatomy and growth (will schedule with [facility]) - Recommend weekly testing at 36 weeks for IVF - Consider delivery at 39 weeks due to IVF (risk/benefit discussion with provider suggested) Nausea/Vomiting: yes, using zofran once/day Taking vitamins: yes Options of sequential screen, cell-free DNA testing, amniocentesis were discussed. Patient is not interested in pursuing testing. This was an IVF . AMA: no Previous : no OB History Para Term AB Living 1 SAB IAB Ectopic Multiple Live Births # Outcome Date GA Lbr Jose/2nd Weight Sex Delivery Anes PTL Lv 1 Current Past Medical History: . Date Anxiety state, unspecified 11/14/2005 Depression GERD (gastroesophageal reflux disease) 06/02/2014 EGD 05/2014 normal Infertility, female PID (pelvic inflammatory disease) 2013 STD (sexually transmitted disease) 2011 chlamydia Urinary tract infection Past Surgical History: . Laterality Date ESOPHAGOGASTRODUODENOSCOPY 05/2014 loose LES, mild reflux esophagitis, hiatal hernia ESOPHAGOGASTRODUODENOSCOPY 02/2019 Normal SALPINGECTOMY Bilateral 06/2022 left hydrosalpinx, possible right hydrosalpinx, endometrial bx, lysis of adhesions SEPTOPLASTY Bilateral 04/20/2022 also turbinate reduction WISDOM TEETH EXTRACTION 2008 XR HYSTEROSALPINGOGRAM Bilateral 05/19/2022 findings of left distal hydrosalpinx Family History Problem Relation Age of Onset Hypertension Mother ?? Hyperlipidemia Mother Diabetes Father resolved with weight loss Hypertension Father Valvular heart disease Father valve replacement 10yrs ago Polycystic ovary syndrome Sister infertility Hypertension Brother Sleep apnea Brother Thyroid Disease Maternal Aunt Diabetes Maternal Aunt Uterine cancer Maternal Aunt Stroke Maternal Uncle Muscular dystrophy Maternal Grandmother Parkinsonism Maternal Grandmother Myasthenia gravis Maternal Grandmother Hyperlipidemia Maternal Grandfather Thyroid Disease Maternal Grandfather Coronary artery disease Maternal Grandfather Cancer-colon Maternal Grandfather Diabetes Maternal Grandfather Dementia Maternal Grandfather Lung cancer Paternal Grandmother Dementia Paternal Grandfather 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 Tobacco Use Smoking status: Former Current packs/day: 0.00 Average packs/day: 0.5 packs/day for 7.0 years (3.5 ttl pk-yrs) Types: Cigarettes Start date: 04/20/2007 Quit date: 04/20/2014 Years since quittin.9 Smokeless tobacco: Never Substance Use Topics Alcohol use: Not Currently Alcohol/week: 10.0 standard drinks of alcohol Types: 10 Shots of liquor per week Comment: occasional Current Outpatient Medications Medication Sig aspirin chewable 81 mg chewable tablet Chew 81 mg by mouth once daily. cetirizine (ZYRTEC) 10 mg tablet Take 1 tablet by mouth once daily. cholecalciferol (VITAMIN D3) 5,000 unit capsule Take by mouth. citalopram (CELEXA) 20 mg tablet Take 1 Tablet (20 mg) by mouth every morning. fluticasone (50 mcg per actuation) nasal solution (FLONASE) Inhale 1 [place] into affected nostril(s) two times daily. omeprazole (PRILOSEC) 20 mg Delayed-Release capsule Take 1 Capsule (20 mg) by mouth 2 times daily before meals. ondansetron (ZOFRAN ODT) [address] 1 Tablet (4 mg) on the tongue every 8 hours if needed for Nausea/Vomiting. ondansetron (ZOFRAN) Take by mouth. VIT 10-IRON FUM-FOLIC ORAL Take by mouth. No current facility-administered medications for this visit. Medications have been reviewed by me and are current to the best of my knowledge and ability. ALLERGIES Amoxicillin MENTAL HEALTH HISTORY History of psychiatric diagnosis: Anxiety Current mental health provider: Yes: PCP Currently taking any psychiatric medications? Yes INFECTION HISTORY Current Drug Use: none Relevant infection history from OB Questionnaire: none REVIEW OF SYSTEMS Comprehensive ROS complete and negative other than noted in HPI and on OB Questionnaire. PHYSICAL EXAM BP 107/72 (Cuff Site: Right Arm, Position: Sitting, Cuff Size: Adult Large) Pulse 76 Wt 94.1 kg (207 lb 6.4 oz) LMP 08/27/2022 (Exact Date) SpO2 98% BMI 37.21 kg/m?? General Appearance: Alert, appropriate appearance for age. No acute distress. ASSESSMENT/PLAN 32 y.o. at 20w6d with ojeda intrauterine . ICD-10-CM 1. Encounter for supervision of normal first in second trimester Z34.02 GLUCOSE,GESTATIONAL HEMOGLOBIN TREPONEMA PALLIDUM 2. Obesity (BMI 30.0-34.9) E66.9 3. In vitro fertilization Z31.83 Satisfactory exam. Demonstrates appropriate and health-seeking behaviors toward her . Verbalizes good understanding of care schedule and the importance of coming to each visit as scheduled. Start/continue vitamins. Reviewed labs. She was encouraged to call the office with any questions or concerns. Follow up in 4 weeks with diabetes, hemoglobin, syphilis screening. Body mass index is 37.21 kg/m??. Diet and expected weight gain discussed with patient. DEPRESSION SCREEN 01/20/2023 11:21 AM 02/20/2023 10:00 AM PHQ Depression Screening Date of PHQ exam (doc flow) 01/20/2023 02/20/2023 1. Lack of interest/pleasure 1 - Several days 0 - Not at all 2. Feeling down/depressed 1 - Several days 0 - Not at all PHQ-2 TOTAL SCORE 2 0 3. Trouble sleeping 0 - Not at all 0 - Not at all 4. Decreased energy 1 - Several days 0 - Not at all 5. Appetite change 1 - Several days 0 - Not at all 6. Feelings of failure 0 - Not at all 0 - Not at all 7. Trouble concentrating 0 - Not at all 0 - Not at all 8. Activity level 0 - Not at all 0 - Not at all 9. Hurting yourself 0 - Not at all 0 - Not at all PHQ-9 TOTAL SCORE 4 0 PHQ-9 Severity Level none none Functional Impairment somewhat difficult not difficult at all Currently receiving treatment Sarah Gilliam MD ERCIAL INTERN Progress Notes - [facility] En [facility] - 04/03/2023 - GA:19w6d 04/03/2023 - wd - Jenn Cintron MD Referred By: ANU VAZ Indications Code 19 weeks gestation of Z3A.19 IVF BMI>30 IMPRESSION: Intrauterine at 19w 6d. presentation is Cephalic. EFW 345 grams, percentile: 66. Growth parameters and estimated weight are appropriate for gestational age. No gross structural defects detected. Normal Deepest Vertical Pocket of amniotic fluid: 3.54 cm. Placental location: Anterior. There is no evidence of placenta previa. Normal transabdominal cervical length. Normal anatomy ultrasound with exceptions of the following views which were not well seen NB, profile, right leg profile, placental cord insertion, RVOT, 3VT, CSP, face, 4CH, ACI RECOMMENDATIONS: - Return to primary provider for continued care. - A follow up ultrasound is recommended in 3 weeks to assess remaining anatomy and growth (will schedule with [facility]) - Recommend weekly testing at 36 weeks for IVF - Consider delivery at 39 weeks due to IVF (risk/benefit discussion with provider suggested) COMMENT: The patient was seen by the Perinatologist today. The previous ultrasound and the records were reviewed. The results of today's ultrasound were communicated to the patient. Alternatives are available for detecting anomalies, aneuploidy and predicting developmental outcome for this . At the conclusion of our consultation the patient decided to have a followup ultrasound in 4 weeks to complete the anatomy and growth. No additional screening scheduled. Assisted reproductive technology (ART, IVF and related procedures) is associated with multifetal gestation, indepentent of number of fetuses, and growth disorders. There is an up to 30 fold increase in multiple pregnancies, with their assoicated risks. Buford-analysis shows an increased risk of mortality, delivery, low weight, VLBW, and SGA fetuses. The risk of malformation after IVF appears to be somewhat increased including heart defects. Due to this increase in risk for cardiac malformations a echocardiogram was done today. Imprinting errors also appear to be increased. Present findings are reassuring. The results of the ultrasound were communicated to the patient today. New government regulations related to the Cures act require that this note be released to the patient immediately, sometimes before the referring provider has been contacted. A portion of the information was presented verbally to the patient. The remainder is submitted as background for the referring provider, to be discussed as needed. Medical Decision Making: Low Complexity 02287 Limited Diagnoses including two minor problems, with Infertility. Limited Data including review of prior ultrasound and review of prior external notes Minimal risk of morbidity or mortality to the fetus from further testing with ultrasound. Services Provided: Procedures Code DETAIL ANATOMY & MPP ECHO 52879.0 ERCIAL INTERN Progress Notes - Phone OB En counter - 03/20/2023 - GA:17w6d 03/20/2023 - 17w6d - Dory Joseph RN Virtual Visit: As the provider for this telephone service, I attest that I introduced myself to the patient, provided my credentials, disclosed my location, and determined that, based on a review of the patient's chart and/or a discussion with members of the patient's treatment team, a telephone visit is an appropriate and effective means of providing this service. The patient and I mutually agree that this visit is appropriate for telephone as well. Patient location (originating site [facility]): [place], [place] Provider location (distant site city/state): [place], [place] Video/Phone start time (include am/pm designation): 10:40 AM Video/Phone end time (include am/pm designation): 11:30 SUBJECTIVE: Ewa Bergeron is a 32 y.o. female, , who presents for OB education and intake IVF transfer date 12/04/22 Current symptoms include: Nausea:Yes - improving Vomiting:Yes - occasional still Breast tenderness:Yes Vaginal bleeding:Yes - spotting early on Vaginal discharge:No Pelvic cramping:No Fatigue:Yes Previous Delivery Type: NA Occupation of patient: MWI Name of Partner or Father of baby: Tres. MENSTRUAL HISTORY: IVF Past Medical History: . Date Anxiety state, unspecified 11/14/2005 Depression GERD (gastroesophageal reflux disease) 06/02/2014 EGD 05/2014 normal Infertility, female PID (pelvic inflammatory disease) 2013 STD (sexually transmitted disease) 2011 chlamydia Urinary tract infection OB History Para Term AB Living 1 SAB IAB Ectopic Multiple Live Births # Outcome Date GA Lbr Jose/2nd Weight Sex Delivery Anes PTL Lv 1 Current 5P'S SUBSTANCE ABUSE SCREEN FOR ALCOHOL, DRUGS AND TOBACCO: Did any of your parents have a problem with using alcohol or drugs? No Do any of your friends (peers) have problems with drug or alcohol use? No Does your partner have a problem with drug or alcohol use? No Before you knew you were , how often did you drink beer, wine, wine coolers or liquor or use any kind of drug? Rarely In the past month, how often did you drink beer, wine, wine coolers or liquor or use any kind of drug? Not at all How much did you smoke, vape or use tobacco or nicotine in any form before you knew you were ? Don't Smoke, Vape or use Tobacco Genetic Screening Genetic Screening/Teratology Counseling- Includes patient, baby's father, or anyone in either family with: Patient's age 35 years or older as of estimated date of delivery: No Thalassemia (Sri Lankan, Prydeinig, Mediterranean, or background): MCV less than 80: No Neural tube defect (Meningomyelocele, Spina bifida, or Anencephaly): No Congenital heart defect: Yes (Comment: cousin- down's related) Down syndrome: Yes (Comment: cousin) Aristeo-Sachs (Ashkenazi Sikhism, Cajun, Hong Konger Coos): No Vicki disease (Ashkenazi Sikhism): No Familial dysautonomia (Ashkenazi Sikhism): No Sickle cell disease or trait (): No Hemophilia or other blood disorders: No Muscular dystrophy: Yes (Comment: maternal grandmother) Cystic fibrosis: No Brethren's chorea: No Intellectual disability and/or autism: No Other inherited genetic or chromosomal disorder: No Maternal metabolic disorder (eg. Type 1 diabetes, PKU): No Patient or baby's father had child with defects not listed above: No Recurrent loss, or a stillbirth: No Medications (including supplements, vitamins, herbs, or OTC drugs)/illicit/recreational drugs/alcohol since last menstrual period: No CURRENT MEDICATIONS: Current Outpatient Medications Medication Sig aspirin chewable 81 mg chewable tablet Chew 81 mg by mouth once daily. cetirizine (ZYRTEC) 10 mg tablet Take 1 tablet by mouth once daily. cholecalciferol (VITAMIN D3) 5,000 unit capsule Take by mouth. citalopram (CELEXA) 20 mg tablet Take 1 Tablet (20 mg) by mouth every morning. fluticasone (50 mcg per actuation) nasal solution (FLONASE) Inhale 1 [place] into affected nostril(s) two times daily. omeprazole (PRILOSEC) 20 mg Delayed-Release capsule Take 1 Capsule (20 mg) by mouth 2 times daily before meals. ondansetron (ZOFRAN) Take by mouth. VIT 10-IRON FUM-FOLIC ORAL Take by mouth. sodium bicarb-sodium chloride (NEILMED SINUS RINSE) As directed three times daily. Gently rinse both nasal cavities. Follow mixing instructions on box. sodium chloride (OCEAN) 0.65 % nasal solution Inhale 2 Sprays into affected nostril(s) every 2 hours. While awake until follow-up appointment. No current facility-administered medications for this visit. Medications have been reviewed by me and are current to the best of my knowledge and ability. ALLERGIES: Amoxicillin OBJECTIVE: LMP 08/27/2022 (Exact Date) ,URINE (no units) Date Value 04/21/2022 Negative ASSESSMENT/PLAN: No diagnosis found. EDUCATION/PATIENT INSTRUCTIONS - Advised patient to start/continue vitamin. - Discussed risk of using alcohol, tobacco, other drugs in . - Discussed healthy lifestyle in . - Provided online resources such as [employer] and [employer] [place]. Discussed [id number] medications, and follow up. - Encouraged patient to call clinic at [phone] with any vaginal bleeding, fluid leaking from vagina, severe abdominal pain, nausea with severe vomiting, fever higher than 100.4F, painful urination, headache not relieved by Tylenol, or other concerns - [facility] at [facility]- records received - Initial OB appointment with FP/OB scheduled. Future Appointments Date Time Provider Department Center 04/03/2023 2:30 PM [facility] PROVIDER [facility] 04/10/2023 9:15 AM Sarah Gilliam MD [facility] Dory Joseph RN .................... 03/20/2023 11:16 AM ERCIAL INTERN Last Filed Vital Signs Vital Sign Reading Time Taken Comments Blood Pressure 117/78 08/13/2023 9:34 AM CDT Pulse 91 08/13/2023 9:34 AM CDT Temperature 36.1 ??C (97 ??F) 04/21/2022 11: 13 AM COMMERCIAL INTERN Respiratory Rate 14 04/30/2022 3:13 PM COMMERCIAL INTERN Oxygen Saturation 98% 08/13/2023 9:34 AM CDT Inhaled Oxygen Concentration - - Weight 102.3 kg (225 lb 9.6 oz) 08/13/2023 9:34 AM CDT Height 159 cm (5' 2.6) 02/20/2023 10:5 2 AM CDT Body Mass Index 40.48 02/20/2023 10:52 AM CDT Plan of Treatment Upcoming Encounters Date Type Department Care Team (Late st Contact Info) Description 08/20/2023 9:00 AM CDT Ancillary Procedure [facility] [address] [place] [address] 08/20/2023 10:05 AM CDT OB Encounter [facility] [address] [place] [address] Sarah Gilliam MD [address] [place] [address] Health Maintenance Due Date Last Done Comments Hepatitis C screening for age 18-79 2008 COVID-19 vaccine series (2022- season) 2022 06/12/2020, 05/15/2020 Influenza for age 9-49 12/20/2023 , 02/11/2022, 04/30/2021, Additional history exists BMI (ht and wt on same day) for age 18+ 02/21/2024 02/20/2023, 09/16/2022, 04/11/2022, Additional history exists Depression screening for age 12+ 02/21/2024 02/20/2023, 01/20/2023, 07/15/2022, Additional history exists Pap test for age 21-65 01/23/2026 , 01/23/2023, 02/27/2020, Additional history exists Tetanus booster 06/18/2033 06/19/2023, 02/19, 11/18/2007, Additional history exists HIV for age 15-65 Completed 03/05/2009 Tdap Completed 06/19/2023, 02/19, 11/18/2007 Pneumococcal series for age 6-64 Aged Out No longer eligible based on patient's age to complete this topic Procedures Procedure Name Priority Date/Time Associated Diagnosis Comments US OB BIOPHYSICAL PROFILE SINGLE WO NST Routine 08/13/2023 9:36 AM CDT Encounter for supervision of normal first in second trimester Obesity (BMI 30.0-34.9) In vitro fertilization US OB BIOPHYSICAL PROFILE SINGLE WO NST Routine 08/06/2023 9:51 AM CDT Encounter for supervision of normal first in second trimester Obesity (BMI 30.0-34.9) In vitro fertilization VAG RECTAL OB STREP CULT Routine 07/30/2023 11:01 AM CDT Encounter for supervision of normal first in third trimester VAGINAL/RECTAL OB STREP PCR Routine 07/30/2023 11:01 AM CDT Encounter for supervision of normal first in third trimester US OB BIOPHYSICAL PROFILE SINGLE WO NST Routine 07/30/2023 9:35 AM CDT Encounter for supervision of normal first in second trimester Obesity (BMI 30.0-34.9) In vitro fertilization US OB FOLLOW UP ANY TRI SINGLE TA Routine 07/22/2023 1:23 PM CDT Encounter for supervision of normal first in second trimester Obesity (BMI 30.0-34.9) In vitro fertilization HPV THIN PREP Routine 01/23/2023 9:00 AM CDT ANTI HIV 1/2 Routine 03/05/2009 5:05 PM COMMERCIAL INTERN Well Female Exam with Routine Gynecological Exam from Last 3 Months or Most Recently Relevant to Health Maintenance Results * US OB BIOPHYSICAL PROFILE SINGLE WO NST (08/13/2023 9:36 AM CDT) Only the most recent of3 resultswithin the time period is included. Anatomical Region Laterality Modality Ultrasound 08/13/2023 2:43 PM CDT Impressions 08/13/2023 2:43 PM CDT Normal biophysical profile score of 8 out of 8. Dictated by Shashank Fernández MD @ 08/13/2023 2:43:00 PM (Electronically Signed) Narrative 08/13/2023 2:43 PM CDT For Patients: ??As a result of the Century Cures Act, medical imaging exams and procedure reports are released immediately into your electronic medical record. ??You may view this report before your referring provider. ??If you have questions, please contact your health care provider. INDICATION: Obesity COMPARISON: 08/06/2023 TECHNIQUE: Real time العراقي scale imaging of the fetus was performed. Without non-stress testing. FINDINGS: Sonographic imaging demonstrates a single living intrauterine gestation. ??Fetus demonstrates a regular cardiac rate of 158 beats per minute. ??Fetus has a vertex position. The amniotic fluid volume appears normal and there is a single deepest pocket measurement of 6.0 cm. ??The fetus was active and demonstrated normal breathing movements. There was normal flexion and extension of the trunk and extremities. ?? Procedure Note Shashank Fernández MD - 08/13/2023 For Patients: As a result of the Cures Act, medical imagingexams and procedure reports are released immediately into your electronicmedical record. You may view this report before your referring provider.If you have questions, please contact your health care provider. INDICATION: Obesity COMPARISON: 08/06/2023 TECHNIQUE: Real time العراقي scale imaging of the fetus was performed. Withoutnon-stress testing. FINDINGS: Sonographic imaging demonstrates a single living intrauterine gestation.Fetus demonstrates a regular cardiac rate of 158 beats per minute. Fetushas a vertex position. The amniotic fluid volume appears normal and thereis a single deepest pocket measurement of 6.0 cm. The fetus was activeand demonstrated normal breathing movements. There was normal flexion andextension of the trunk and extremities. IMPRESSION: Normal biophysical profile score of 8 out of 8. Dictated by Shashank Fernández MD @ 08/13/2023 2:43:00 PM (Electronically Signed) Sarah Gilliam MD US * (ABNORMAL) VAGINAL/RECTAL OB STREP PCR (07/30/2023 11:01 AM CDT) Vaginal/Rectal OB Strep B PCR Positive( A) 08/03/2023 9:56 AM CDT [facility] Comment:If susceptibility is needed due to penicillin allergy, contact lab. Other (Vaginal/Rectal) Non-Blood / Unknown 07/30/2023 11:01 AM CDT 07/30/2023 11:01 AM CDT Sarah Gilliam MD MICROBIOLOGY [facility] [address] [place] [address], [place] * (ABNORMAL) VAG RECTAL OB STREP CULT (07/30/2023 11:01 AM CDT) CULTURE RESULT(A) 08/07/2023 1:39 PM CDT [facility] CULTURE 4+ Streptococcus agalactiae (Strep Group B) 08/07/2023 1:39 PM CDT [facility] Other (Vaginal/Rectal) Non-Blood / Unknown 07/30/2023 11:01 AM CDT 07/30/2023 11:01 AM CDT Narrative Organism Antibiotic Method Susceptibility Streptococcus agalactiae (Strep Group B) PENICILLIN <=0.06: S Streptococcus agalactiae (Strep Group B) CEFTRIAXONE <=0.12: S Streptococcus agalactiae (Strep Group B) CLINDAMYCIN <=0.25: S Streptococcus agalactiae (Strep Group B) VANCOMYCIN 0.5: S Streptococcus agalactiae (Strep Group B) AMPICILLIN <=0.25: S Sarah Gilliam MD MICROBIOLOGY [facility] [address] [place] [address], [place] * US OB FOLLOW UP ANY TRI SINGLE TA (07/22/2023 1:23 PM CDT) Anatomical Region Laterality Modality , 2or 3 TRIMESTER Ultrasound 07/23/2023 2:39 PM CDT Impressions 07/23/2023 2:39 PM CDT Sonographic gestational age 35 weeks 0 days and sonographic due date of 08/26/2023. Good correlation with dates. Normal interval growth. Estimated weight 31st percentile. Abdominal circumference 51st percentile. Dictated by Shashank Fernández MD @ 07/23/2023 2:39:56 PM (Electronically Signed) Narrative 07/23/2023 2:39 PM CDT For Patients: ??As a result of the Century Cures Act, medical imaging exams and procedure reports are released immediately into your electronic medical record. ??You may view this report before your referring provider. ??If you have questions, please contact your health care provider. INDICATION: Third trimester scan, evaluate growth. Obesity. COMPARISON: 04/24/2023 TECHNIQUE: Real time العراقي scale imaging of the fetus was performed as well as color Doppler and spectral Doppler analysis of the umbilical artery. FINDINGS: Sonographic imaging demonstrates a single living intrauterine gestation. ??Fetus demonstrates a regular cardiac rate of 139 beats per minute. ??Fetus has a vertex position. The placenta lies anteriorly without evidence of placenta previa. ??Amniotic fluid volume appears normal and there is a single deepest vertical pocket: 4.2 cm. The estimated weight is 2552gm which lies at the 31st %. ??On the prior OB ultrasound exam dated 04/24/2023 the estimated weight was at the 39th%. The biometric indices all lie within normal range. ??The HC/AC ratio measures 1.01 range (0.93-1.11). Procedure Note Shashank Fernández MD - 07/23/2023 For Patients: As a result of the Cures Act, medical imagingexams and procedure reports are released immediately into your electronicmedical record. You may view this report before your referring provider.If you have questions, please contact your health care provider. INDICATION: Third trimester scan, evaluate growth. Obesity. COMPARISON: 04/24/2023 TECHNIQUE: Real time العراقي scale imaging of the fetus was performed as well as colorDoppler and spectral Doppler analysis of the umbilical artery. FINDINGS: Sonographic imaging demonstrates a single living intrauterine gestation.Fetus demonstrates a regular cardiac rate of 139 beats per minute. Fetushas a vertex position. The placenta lies anteriorly without evidence ofplacenta previa. Amniotic fluid volume appears normal and there is asingle deepest vertical pocket: 4.2 cm. The estimated weight dt7199mg which lies at the 31st %. On the prior OB ultrasound exam dated04/24/2023 the estimated weight was at the 39th%. The fetalbiometric indices all lie within normal range. The HC/AC ratio measures1.01 range (0.93- 1.11). IMPRESSION: Sonographic gestational age 35 weeks 0 days and sonographic due date of08/26/2023. Good correlation with dates. Normal interval growth. Estimated weight 31st percentile. Abdominal circumference 51stpercentile. Dictated by Shashank Fernández MD @ 07/23/2023 2:39:56 PM (Electronically Signed) Sarah Gilliam MD US * HPV HIGH RISK (01/23/2023 9:00 AM CDT) TYPE 16 Negative Negative 01/28/2023 2:33 PM CDT [facility] TYPE 18 Negative Negative 01/28/2023 2:33 PM CDT [facility] OTHER HIGH RISK TYPES Negative Negative 01/28/2023 2:33 PM CDT [facility] Other (Cervical) 01/23/2023 9:00 AM CDT 01/26/2023 2:04 PM CDT Narrative [facility] - 01/28/2023 2:33 PM CDT HPV types 16, 18, 31, 33, 35, 39, 45, 51, 52, 56, 58, 59, 66 and 68 DNA were undetectable or below the pre-set threshold. Methodology: Kevan Cara 4800 HPV Test Karen Ortega MAIL CARRIER AND CLERK MICROBIOLOGY [facility] [address] [place] [address], * ANTI HIV 1/2 (03/05/2009 5:05 PM COMMERCIAL INTERN) ANTI HIV 1/2 Non-reacti ve [facility] Blood specimen (specimen) BLOOD SPECIMEN / Unknown 03/05/2009 5:05 PM COMMERCIAL INTERN 03/05/2009 4:59 PM COMMERCIAL INTERN Sarah Gilliam MD SEND OUTS [facility] INTERNAL ZIP [address] [address] from Last 3 Months or Most Recently Relevant to Health Maintenance Advance Directives * Full Code (Latest Code Status on File) Date Activated Date Inactivated Comments 04/21/2022 8:29 AM 04/21/2022 2:40 PM Question Answer Comments Code Status Discussion: Unable to Assess Preferences, Provider to review later Care Teams Pleating Supervisor Relationship Specialty Start Date End Date Sarah Gilliam MD [address] [place] [address] PCP - General 12/16/17 Nacho Leiva MD [address] [place] [address] Allergy and Immunology 08/02/18 Anu Vaz MD [address] [place] [address] Referring Provider Obstetrics and Gynecology 03/17/23
--- OUTSIDE RECORDS SUMMARY | 2023-08-16 16:54 | XMS_ITS | Clinical Summary ---
Author Name Unknown Organization [facility] Address [address] [place] [id number] Care Team Providers Care Spotter Driver Name Role Phone System, Provider Not In [...] Orientation Not on file Plan of Treatment Health Maintenance Due Date Last Done Comments ADVANCE CARE PLANNING 1990 ANNUAL REVIEW OF HM ORDERS 1990 YEARLY PREVENTIVE VISIT 1990 HIV SCREENING 2005 HEPATITIS C SCREENING 2008 PAP 07/08/2011 COVID-19 Vaccine ( season) 2022 06/12/2020, 05/15/2020 INFLUENZA VACCINE (#1) 2022 2, 04/30/2021, 12/28/2019, Additional history exists PHQ-2 (once per calendar year) 2023 DTAP/TDAP/TD IMMUNIZATION (8 - Td or Tdap) 03/16/2027 03/16/2017, 11/18/2007, 11/11/2001, Additional history exists IPV IMMUNIZATION Completed 08/04/1995, 07/1991, 01/17/1991, Additional history exists HPV IMMUNIZATION Completed 07/15/2007, , 11/27/2006 MENINGITIS IMMUNIZATION Completed 11/18/2007 HEPATITIS B IMMUNIZATION Completed 018, 06/06/2002, 12/14/2001, Additional history exists Pneumococcal Vaccine: Pediatrics (0 to 5 Years) and At-Risk Patients (6 to 64 Years) Aged Out No longer eligible based on patient's age to complete this topic RSV MONOCLONAL ANTIBODY Aged Out No l onger eligible based on patient's age to complete this topic Care Teams Spotter Driver Relationship Specialty Start Date End Date System, Provider Not In PCP - General Clinic 05/19/22
[2023-08-16 17:05] VITALS: PULSE 110; O2SAT 97
[2023-08-16 17:06] VITALS: BP 117/59; PULSE 93
[2023-08-16 17:07] VITALS: BMI 40.7
[2023-08-16 17:10] VITALS: PULSE 93; O2SAT 97
[2023-08-16 17:31] VITALS: RESP 17; TEMP 36.8
--- NOTE | 2023-08-16 18:27 | P.OBHP_ITS ---
OB - H&P: HPI Labor/Induction History of Present Illness Date Seen: 08/16/23 Chief Complaint: The patient is a 33 year old 1 para 1 at 39+1 weeks gestation by known embryo transfer date, who presents for IOL for IVF . Chief complaint: Induction Indications for induction: other (IVF, maternal obesity) Narrative: Ewa Bergeron is a 33 year old at 39+1 weeks here for IOL for IVF . She reports no regular contractions, no leaking fluid. has otherwise been complicated by maternal obesity. She had a normal level 2 US and has been having weekly BPPs. EFW at 35 weeks was 2552g (31%). She is GBS+, pcn allergic, but culture was pansensitive. Specific Issues/Plans G 1 P 0 It's a BOY! *FYI transferring care to her PCP, Dr. Gilliam at [facility]* Genetic screening options reviewed. Declined. 1. Tubal factor infertility: s/p bilateral salpingectomy. IVF, frozen embryo transfer on December 04, 2022 [x] referral to [facility] placed - Level 2 ultrasound with echo at 20 weeks 04/03: Unremarkable study aside from limited views of NB, profile, right leg, placental cord insertion, RVOT, 3T, CSP, 4CH, ACI where repeat at [facility] will be completed in 3 weeks Growth ultrasound at 32 weeks Weekly NST starting at 36 weeks 2. BMI 34.5 Daily baby aspirin started at 12 weeks to reduce risk of preeclampsia 3. Nausea and vomiting in . Managed with Zofran. 4. Omeprazole 20mg BID for loose upper esophageal sphincter 5. Anxiety and depression. Well-managed on Citalopram 20mg. 6. Left adnexal mass measuring 5.7 x 3.5 x 4.3 cm likely representing dermoid cyst versus hemorrhagic cyst. Will follow-up at 20 week ultrasound. [] Reviewed torsion precautions with the patient. Flu: Completed at today's visit COVID: Completed, not boosted. Recommended. History of Present Dating criteria: other (embryo transfer) care: good care Ultrasounds: normal 1st trimester US and normal mid trimester US Labs Blood type: B (+) positive Rubella: immune RPR/VDLR: nonreactive GBS status: positive HBsAG: negative Review of Systems Status of ROS: Reports: 10 or more systems reviewed and unremarkable except as noted in History and below Meds Home Medications and Allergies Home Medications Medication Instructions Recorded Confirmed Type cetirizine 10 mg capsule (Zyrtec) 10 mg PO QDAY PRN 01/10/22 08/16/23 History cholecalciferol (vitamin D3) 125 125 mcg PO QDAY 06/13/22 08/16/23 History mcg (5,000 unit) capsule omeprazole 20 mg capsule,delayed 20 mg PO BID 06/13/22 08/16/23 History release prenat.vits,mayco,ogl-xqqd-npeds 1 tab PO QDAY 06/13/22 08/16/23 History citalopram 10 mg tablet 20 mg PO QDAY 02/20/23 08/16/23 History aspirin 81 mg chewable tablet 81 mg PO DAILY 08/16/23 08/16/23 History (Aspirin Childrens) Allergies Allergy/AdvReac Type Severity Reaction Status Date / Time amoxicillin Allergy Intermediate Hives Verified 08/16/23 17:23 OB - H&P: Exam Physical Exam: Vital signs: Temp Pulse Resp BP Pulse Ox 98.2 F 93 17 117/59 L 97 08/16/23 17:31 08/16/23 17:06 08/16/23 17:31 08/16/23 17:06 08/16/23 17:10 Constitutional: Constitutional: no acute distress Routine HEENT Exam: Head: Present atraumatic and normal inspection Eye: Present EOMI and PERRL ENT: Present mucous membranes moist Routine Neck Exam: Neck: Present full ROM Detailed Neck Exam: Thyroids: Thyroid: Present normal Routine Respiratory Exam: Respiratory: Present CTA bilaterally Routine Cardiovascular Exam: Cardiovascular: RRR Detailed Labor and Delivery Exam: Patient Gravid: Yes Dilation (cm): 1 Effacement (%): 30 Cervix position: mid Consistency: soft Cervical ripeness score: 4 Fetus (Single): Station: -3 Amniotic Membrane Status: intact Routine Neurological Exam: Present alert, oriented X3 and CN II-XII intact Routine Psychiatric Exam: Present normal affect and normal thought process OB - Problem Based A/P Additional Plan (1) Term : Status: Acute (2) resulting from in-vitro fertilization: Status: Acute (3) Ovarian cyst affecting , antepartum: Status: Acute Plan Cook catheter placed. Low dose pitocin overnight. Start clindamycin in AM with cook removal (or sooner if SROM or spontaneous labor) Anticipate . Delivery/Labor/Induction Plan Induction method: Intracervical balloon catheter (This was placed easily with 60 mL in both intrauterine and intravaginal balloons. )
[2023-08-16] MEDS: ACETAMINOPHEN 500 MG TABLET 1000 MG PO (19:04)
[2023-08-16 19:16] VITALS: BP 122/73; PULSE 85; RESP 16; TEMP 37
[2023-08-16 20:58] VITALS: BP 121/58; PULSE 85
[2023-08-16] MEDS: ONDANSETRON 2 MG/ML inj 4 MG IV (21:07)
[2023-08-16] MEDS: OMEPRAZOLE 20 MG CAPSULE DR PO (21:09)
[2023-08-16 21:10] LABS: Basophils Percent Auto 0.2 % (0.0-3.0); Eosinophils Percent Auto 0.3 % (0.0-7.0); Hematocrit 31.2 % (33.0-51.0); Hemoglobin* 9.8 gm/dL (12.0-16.0); Immature Granulocytes Pct Auto 0.6 %; Lymphocytes Percent Auto 17.2 % (20-44); Mean Corpuscular HGB Conc 31 gm/dL (32-36); Mean Corpuscular Hemoglobin 25 pg (26-34); Mean Corpuscular Volume 80 fL (80-100); Monocytes Percent Auto 6.2 % (0.0-11.0); Neutrophils Percent Auto 75.5 % (42.0-72.0); Platelet Count* 212 K/uL (140-440); RDW Coefficient of Variation % 14.2 % (11.5-15.5); Red Blood Count 3.88 m/uL (4.00-5.20); White Blood Count* 12.53 K/uL (4.50-11.00)
[2023-08-16] MEDS: LACTATED RINGERS 1000 ML 1,000 ML 125 ML IV (21:11)
[2023-08-16] MEDS: CLINDAMYCIN 900 MG/50 ML-D5W IVPB (21:12)
[2023-08-16 21:14] LABS: Slide Review Reflex No
[2023-08-16] MEDS: MORPHINE 10 MG/ML inj IM (21:29)
[2023-08-16] MEDS: hydrOXYzine pamoate 25 MG CAPSULE 100 MG PO (21:29)
[2023-08-17] VITALS (68 sets, daily range): BP systolic 91–136; BP diastolic 45–72; PULSE 73–100; RESP 16–20; TEMP 36.5–37.6; O2SAT 98–100
[2023-08-17] MEDS: OXYTOCIN 30 unit/500 ML in NS 30 UNIT/500 ML BAG IVPB ×2 (00:05→21:34)
[2023-08-17] MEDS: ONDANSETRON 2 MG/ML inj 4 MG IV ×2 (01:39→23:21)
[2023-08-17] MEDS: CLINDAMYCIN 900 MG/50 ML-D5W IVPB (05:35)
[2023-08-17] MEDS: LACTATED RINGERS 1000 ML 1,000 ML 125 ML IV (06:31)
[2023-08-17] MEDS: OMEPRAZOLE 20 MG CAPSULE DR PO ×2 (08:04→21:33)
[2023-08-17] MEDS: ROPIVACAINE 0.2% 100 ml 100 ML 12 MG EPIDURAL ×2 (11:14→19:15)
[2023-08-17] MEDS: LACTATED RINGERS 1000 ML 1,000 ML 999 ML IV ×2 (11:21→17:40)
--- NOTE | 2023-08-17 12:00 | P.OBPN_ITS ---
Subjective Date Seen: 08/17/23 Narrative: PAtient was uncomfortable overnight with cook and pitocin. Cook removed around 6:30 and she has been comfortable since. She did request an epidural prior to AROM so is comfortable now. Objective Vital Signs: Last Vital Signs Temp 97.7 F 08/17/23 08:07 Pulse 86 08/17/23 11:46 Resp 16 08/17/23 08:07 BP 121/72 08/17/23 11:46 Pulse Ox 100 08/17/23 11:16 Pelvic Exam Dilation (cm): 3 Effacement (%): 50 Station: -3 Contractions Monitor mode: External Contraction Frequency: 5 minutes Contraction pattern: Irregular Contraction intensity: Mild Pitocin Rate (mU/min): 10 Assessment Station: -3 Heart Rate Baseline: 150 Senior Care Variability: Moderate (6-25) Monitor Accelerations: Present Monitor Decelerations: None Plan Plan: AROM completed with return of moderate bloody tinged fluid. Continue pitocin per protocol. Anticipate .
--- NOTE | 2023-08-17 12:11 | P.ANBPRC_ITS ---
[facility] Medical History (Updated 08/16/23 @ 18:36 by Sarah Gilliam MD) Nausea and vomiting during ?O21.9 - Vomiting of , unspecified (ICD-10) Right ankle sprain ?S93.401A - Sprain of unspecified ligament of right ankle, initial encounter (ICD-10) Infertility Hydrosalpinx ?N70.11 - Chronic salpingitis (ICD-10) PHILIP (obstructive sleep apnea) ?G47.33 - Obstructive sleep apnea (adult) (pediatric) (ICD-10) History of PID ?Z87.42 - Personal history of other diseases of the female genital tract (ICD-10) History of chlamydia infection ?Z86.19 - Personal history of other infectious and parasitic diseases (ICD- 10) Surgical History History of laparoscopy (07/01/22) ?Z98.890 - Other specified postprocedural states (ICD-10) H/O wisdom tooth extraction ?K08.409 - Partial loss of teeth, unspecified cause, unspecified class (ICD- 10) History of nasal septoplasty (04/2022) ?Z98.890 - Other specified postprocedural states (ICD-10) Family History Father Coronary artery disease High blood pressure High cholesterol Mother High blood pressure High cholesterol Maternal Grandfather Coronary artery disease Thyroid disease High cholesterol Diabetes Colon cancer Uncle Stroke Aunt Uterine cancer Thyroid disease Diabetes Paternal Grandmother Lung cancer Maternal Grandmother Parkinson's disease Myasthenia gravis Muscular dystrophy 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: , 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 What is your current living situation?: I presently have a place to live Problems where you live: no known problems In the past 12 months, utilities in danger of being shut off: no In past 12 months, lack of transportation kept you from medical appts, meetings, work, or getting things needed for daily living: no How hard is it for you to pay for the very basics like food, housing, medical care, and heating: not very hard In the past 12 mos, have been you worried that your food would run out before you had money to buy more?: never true In the past 12 mos, the food you bought just didn't last and you didn't have money to buy more?: never true Highest level of school completed/degree received: Associate degree: occ upational, technical, vocational program Smoking Status: Never smoker How often do you have a drink containing alcohol: 2-4 times a month Alcohol type: hard liquor How many standard drinks containing alcohol do you have on a typical day: 3 or 4 AUDIT-C Alcohol total score: 3 Non-prescribed substance use: denies use Caffeine: Yes (COFFEE DAILY) How often does anyone, including family, friends and others, physically hurt you : never How often does anyone, including family, friends and others, insult or talk down to you: never How often does anyone, including family, friends and others, threaten you with harm: never How often does anyone, including family, friends and others, scream or curse at you: never Little interest or pleasure in doing things: not at all Feeling down, depressed, or hopeless: not at all Do you think of yourself as: straight/heterosexual Gender Identity: female Are you currently sexually active: Yes In the past 12 months, how many sex partners have you had: one Are you using contraception or practicing any form of control: No Meds Home Medications and Allergies Home Medications Medication Instructions Recorded Confirmed Type cetirizine 10 mg capsule (Zyrtec) 10 mg PO QDAY PRN 01/10/22 08/16/23 History cholecalciferol (vitamin D3) 125 125 mcg PO QDAY 06/13/22 08/16/23 History mcg (5,000 unit) capsule omeprazole 20 mg capsule,delayed 20 mg PO BID 06/13/22 08/16/23 History release prenat.vits,mayco,ynl-mpxo-zyyay 1 tab PO QDAY 06/13/22 08/16/23 History citalopram 10 mg tablet 20 mg PO QDAY 02/20/23 08/16/23 History aspirin 81 mg chewable tablet 81 mg PO DAILY 08/16/23 08/16/23 History (Aspirin Childrens) Allergies Allergy/AdvReac Type Severity Reaction Status Date / Time amoxicillin Allergy Intermediate Hives Verified 08/16/23 17:23 Results Labs Labs: Laboratory Results - last 24 hr 08/16/23 21:01 WBC 12.53 H RBC 3.88 L Hgb 9.8 L Hct 31.2 L MCV 80 MCH 25 L MCHC 31 L RDW Coeff of Beth 14.2 Plt Count 212 Neut % (Auto) 75.5 H Lymph % (Auto) 17.2 L M[place] % (Auto) 6.2 Eos % (Auto) 0.3 Baso % (Auto) 0.2 Neut # (Auto) 9.50 H Lymph # (Auto) 2.20 [place]ingo # (Auto) 0.80 Eos # (Auto) 0.00 Baso # (Auto) 0.00 Abs Immat Gran (auto) 0.10 Imm/Tot Granulo (auto) 0.6 Vital Signs Vital Signs: Last Vital Signs Temp 97.7 F 08/17/23 08:07 Pulse 85 08/17/23 12:02 Resp 16 08/17/23 08:07 BP 98/48 L 08/17/23 12:02 Pulse Ox 100 08/17/23 11:16 Weight: 104.326 kg Height: 160.02 cm Anesthesia Procedures Epidural Insertion Patient Location: OB Start Time: 10:30 Stop Time: 11:15 Start Date: 08/17/23 Stop Date: 08/17/23 Reason for Block: procedure for pain Patient Position: sitting Performed By: Kathy Gifford Preanesthetic Checklist: IV checked, risks and benefits discussed, monitors and equipment checked, timeout performed and anesthesia consent Prep: chlorhexidine gluconate Monitoring: blood pressure monitoring, continuous pulse oximetry and heart rate Approach: midline Vertebral Space: lumbar (1-5) Epidural Technique: NIDHI saline Needle Type: Tuohy needle Injection Technique: continuous catheter Needle gauge: 17 Needle Length (cm): 10 cm Needle Insertion Depth (cm): 6 Catheter Gauge: 19 Catheter Type: multi-orifice Catheter at skin depth (cm): 12 Test Dose Result: negative and lidocaine 1.5% with epinephrine 1 to 200,000 Events: other (patient had 0/10 pain at time of placement, gave 5 ml of Bupivacaine 0.25% loading dose.)
[2023-08-17] MEDS: CLINDAMYCIN 900 MG/50 ML-D5W 900 MG/50 ML PIGGYBACK 100 MG IVPB ×2 (14:29→22:23)
--- NOTE | 2023-08-17 15:34 | P.OBPN_ITS ---
Subjective Date Seen: 08/17/23 Narrative: I was asked by the nursing staff with Dr. Roberson approval to place a IUPC. They were unable to trace contractions despite repositioning the TOCO and the patient. and the patient is not able to feel them due to an epidural. Consequently they were unable to titrate the Pitocin. Procedure and risks/benefit discussed with patient and questions answered. Easily able to introduce the catheter but it met resistance to advancing. Stopped advancement when resistance was met. Initial attempt resulted in coiling of the IUPC catheter but a second attempt was successful. Patient and fetus tolerate the procedure well. There was a moderate amount of clear amniotic fluid leaking with placement. Objective Vital Signs: Last Vital Signs Temp 98.5 F 08/17/23 15:30 Pulse 99 08/17/23 15:32 Resp 16 08/17/23 13:57 BP 112/55 L 08/17/23 15:32 Pulse Ox 100 08/17/23 11:16 Pelvic Exam Dilation (cm): 3 Effacement (%): 70 Station: -2 Contractions Monitor mode: Internal (IUPC placed ) Assessment Station: -2 Heart Rate Baseline: 145 Commercial Account Officer Variability: Moderate (6-25) Monitor Accelerations: Present Monitor Decelerations: None Plan Plan: Continued care by Dr. Gilliam.
[2023-08-17] MEDS: CITALOPRAM HYDROBROMIDE 20 MG TABLET 30 MG PO (17:41)
--- NOTE | 2023-08-17 19:33 | PC.NURSE ---
truck spotter notified that documentation of oxytocin titration was started under the oxytocin order instead of the correct order. RN confirmed that the same concentration was being utilized and instructed the oncoming RN to continue documenting on the order in which it was started.
[2023-08-17] MEDS: CALCIUM CARBONATE 500 MG CHEW PO (20:16)
--- NOTE | 2023-08-17 21:54 | PM.OBPNL ---
Subjective Date Seen: 08/17/23 Narrative: Ewa is a at 39 weeks here for IOL for IVF , maternal obesity. She made minimal change through out day shift, has an IUPC in place and nursing staff was able to titrate pitocin up to 20 mU. Intermittently was getting to adequate MVUs. Since she had been on pitocin for ~10 hours, we opted to take a break for an hour during which time contractions stopped. Now nursing has reinitiated pitocin at 2 mU. Patient is still comfortable with epidural. Objective Vital Signs: Last Vital Signs Temp 98.5 F 08/17/23 20:15 Pulse 100 08/17/23 21:47 Resp 16 08/17/23 18:33 BP 97/54 L 08/17/23 21:47 Pulse Ox 100 08/17/23 11:16 Pelvic Exam Dilation (cm): 4 Effacement (%): 70 Station: -1 Contractions Monitor mode: Internal (IUPC placed ) Contraction pattern: Irregular Contraction intensity: Mild Pitocin Rate (mU/min): 2 Assessment Assessment: induction ongoing Station: -1 Status: Category l Heart Rate Baseline: 150 Penitentiary Variability: Moderate (6-25) Monitor Accelerations: Present Monitor Decelerations: None Plan Plan: COntinue pitocin per protocol. If not making cervical change, will need to consult programming manager.
[2023-08-18] VITALS (77 sets, daily range): BP systolic 77–144; BP diastolic 40–87; PULSE 77–105; RESP 15–18; TEMP 36.6–37.1; O2SAT 95–100
[2023-08-18] MEDS: LACTATED RINGERS 1000 ML 1,000 ML 125 ML IV ×4 (00:31→12:39)
[2023-08-18] MEDS: ROPIVACAINE 0.2% 100 ml 100 ML 12 MG EPIDURAL (02:16)
[2023-08-18] MEDS: CLINDAMYCIN 900 MG/50 ML-D5W 900 MG/50 ML PIGGYBACK 100 MG IVPB (06:38)
[2023-08-18] MEDS: ONDANSETRON 2 MG/ML inj 4 MG IV ×2 (07:01→09:58)
[2023-08-18] MEDS: OMEPRAZOLE 20 MG CAPSULE DR PO ×2 (08:05→21:03)
--- NOTE | 2023-08-18 08:39 | P.OBPN_ITS ---
Subjective Date Seen: 08/18/23 Narrative: Ewa is a at 39+1 here for IOL for IVF and obesity. She has been up to 20 mU of pitocin last night and after a break, restarted. has been at 20 mU again this morning with no cervical change. Discussed wtih air support operations operator Ob provider and we are going to try to increase pitocin to 30 mU. Patient is comfortable with epidural. she is tired and open to the idea of if needed. Objective Vital Signs: Last Vital Signs Temp 97.8 F 08/18/23 08:04 Pulse 84 08/18/23 08:34 Resp 15 08/18/23 08:04 BP 106/55 L 08/18/23 08:34 Pulse Ox 100 08/17/23 11:16 Pelvic Exam Dilation (cm): 4 Effacement (%): 80 Station: -2 Contractions Monitor mode: Internal (IUPC placed ) Contraction pattern: Irregular Contraction intensity: Strong/Firm Pitocin Rate (mU/min): 22 Assessment Assessment: induction ongoing Station: -2 Status: Category l Heart Rate Baseline: 150 Monitor Accelerations: Present Monitor Decelerations: None Plan Plan: Spoke with air support operations operator OB provider with ROM >18 hours, minimal cervical change with pitocin >24 hours, meets criteria for failed induction now. Will discuss options for delivery now.
--- NOTE | 2023-08-18 09:09 | P.OBCN_ITS ---
OB - CN: HPI Date of Consult Time Seen by Provider: 09:10 Date Seen: 08/18/23 Patient: Estefany Patient Consult date: 08/18/23 Requesting Physician: Sarah Gilliam MD Primary Care Provider: Sarah Gilliam MD Consult Narrative Reason for consult: other (Failed IOL) Narrative: The patient is a 33 year old G 1 P 0 at 39 3/7 weeks gestation that was admitted to the [facility] on 08/16/23 for elective IOL. Patient started IOL on the night of 08/16/23 with placement of cook catheter and oxytocin. She had AROM on 08/17/23 at 11:30 am. Oxytocin has been increased and decreased throughout her admission. She has remained at 4cm, 80% effaced and minus 2 station. Patient would like to consider a discussion about delivery. History of Present Dating criteria: based on LMP care: good care Ultrasounds: normal 1st trimester US complications: other (IVF) History History 1 Elective abortions Para 0 Spontaneous abortions Hx # Term Pregnancies Ectopic pregnancies Hx # Pregnancies Multiple births Number of Living Children 0 Labs Blood type: B (+) positive Rubella: immune RPR/VDLR: nonreactive GBS status: positive HBsAG: negative OB Labs: Lab Assessment Start: 08/16/23 16:56 Freq: ONCE Status: Complete Protocol: PC.OBGBS Activity Type Activity Date Activity User E-sign Co-sign Detail Recorded Client Recorded Date Recorded By Document 08/16/23 17:58 [facility] [id number] 08/16/23 18:00 [facility] 08/16/23 17:58 Lab Assessment GBS Status positive GBS Additional Criteria None Is Patient Allergic to Penicillin? High Risk Reaction Susceptibility Studies Available? Clindamycin Susceptible GBS Treatment Required OK Are Labs Available Yes Maternal Blood Type B Maternal RH Factor Positive Evaluate Maternal Rubella Immune Status Immune Hepatitis B Surface Antigen Negative Maternal HIV Status Negative Maternal Syphillis (RPR) Status Negative Review of Systems Status of ROS: Reports: 10 or more systems reviewed and unremarkable except as noted in History and below [facility] Medical History (Updated 08/16/23 @ 18:36 by Sarah Gilliam MD) Nausea and vomiting during ?O21.9 - Vomiting of , unspecified (ICD-10) Right ankle sprain ?S93.401A - Sprain of unspecified ligament of right ankle, initial encounter (ICD-10) Infertility Hydrosalpinx ?N70.11 - Chronic salpingitis (ICD-10) PHILIP (obstructive sleep apnea) ?G47.33 - Obstructive sleep apnea (adult) (pediatric) (ICD-10) History of PID ?Z87.42 - Personal history of other diseases of the female genital tract (ICD-10) History of chlamydia infection ?Z86.19 - Personal history of other infectious and parasitic diseases (ICD- 10) Surgical History History of laparoscopy (07/01/22) ?Z98.890 - Other specified postprocedural states (ICD-10) H/O wisdom tooth extraction ?K08.409 - Partial loss of teeth, unspecified cause, unspecified class (ICD- 10) History of nasal septoplasty (04/2022) ?Z98.890 - Other specified postprocedural states (ICD-10) Family History Father Coronary artery disease High blood pressure High cholesterol Mother High blood pressure High cholesterol Maternal Grandfather Coronary artery disease Thyroid disease High cholesterol Diabetes Colon cancer Uncle Stroke Aunt Uterine cancer Thyroid disease Diabetes Paternal Grandmother Lung cancer Maternal Grandmother Parkinson's disease Myasthenia gravis Muscular dystrophy 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: , 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 What is your current living situation?: I presently have a place to live Problems where you live: no known problems In the past 12 months, utilities in danger of being shut off: no In past 12 months, lack of transportation kept you from medical appts, meetings, work, or getting things needed for daily living: no How hard is it for you to pay for the very basics like food, housing, medical care, and heating: not very hard In the past 12 mos, have been you worried that your food would run out before you had money to buy more?: never true In the past 12 mos, the food you bought just didn't last and you didn't have money to buy more?: never true Highest level of school completed/degree received: Associate degree: occupational, technical, vocational program Smoking Status: Never smoker How often do you have a drink containing alcohol: 2-4 times a month Alcohol type: hard liquor How many standard drinks containing alcohol do you have on a typical day: 3 or 4 AUDIT-C Alcohol total score: 3 Non-prescribed substance use: denies use Caffeine: Yes (COFFEE DAILY) How often does anyone, including family, friends and others, physically hurt you : never How often does anyone, including family, friends and others, insult or talk down to you: never How often does anyone, including family, friends and others, threaten you with harm: never How often does anyone, including family, friends and others, scream or curse at you: never Little interest or pleasure in doing things: not at all Feeling down, depressed, or hopeless: not at all Do you think of yourself as: straight/heterosexual Gender Identity: female Are you currently sexually active: Yes In the past 12 months, how many sex partners have you had: one Are you using contraception or practicing any form of control: No Meds Home Medications and Allergies Home Medications Medication Instructions Recorded Confirmed Type cetirizine 10 mg capsule (Zyrtec) 10 mg PO QDAY PRN 01/10/22 08/16/23 History cholecalciferol (vitamin D3) 125 125 mcg PO QDAY 06/13/22 08/16/23 History mcg (5,000 unit) capsule omeprazole 20 mg capsule,delayed 20 mg PO BID 06/13/22 08/16/23 History release prenat.vits,mayco,xxe-xvbv-lfemv 1 tab PO QDAY 06/13/22 08/16/23 History citalopram 10 mg tablet 20 mg PO QDAY 02/20/23 08/16/23 History aspirin 81 mg chewable tablet 81 mg PO DAILY 08/16/23 08/16/23 History (Aspirin Childrens) Allergies Allergy/AdvReac Type Severity Reaction Status Date / Time amoxicillin Allergy Intermediate Hives Verified 08/18/23 05:13 OB - H&P: Exam Physical Exam: Vital signs: Temp Pulse Resp BP Pulse Ox 97.8 F 90 15 110/62 100 08/18/23 08:04 08/18/23 09:02 08/18/23 08:04 08/18/23 09:08/17/23 11:16 Narrative: NST: 140bpm/periods of minimal variability, w/o recurrent decelerations/ positive accelerations/ regular uterine contractions, with adequate MVUs. OB - CN: A/P Assessment and Plan (1) Term : Status: Acute (2) resulting from in-vitro fertilization: Status: Acute (3) Ovarian cyst affecting , antepartum: Status: Acute Plan 33 y/o with IUP at 39 3/7 weeks, admitted for IOL due to history of IVF. Patient meets criteria for failed IOL at this time (has been on Oxytocin for more than 24 hours and has had ROM for more than 18 hours), she is still 4cm and station -2. IUPC has been placed and MVUs have had episodes of being adequate. NST in general category 1 and 2. Maternal status stable. Patient desired to discuss possibility of delivery vs continuing to increase oxytocin and re evaluation. Patient, Dr. Gilliam and myself met with patient and discuss labor progress and options. I discussed with patient that in theory she would meet criteria for failed IOL at this time, since baby and herself have remained medically stable we could always attempt additional increases to oxytocin and re evaluate in a couple of hours. Patient feels like this is not going to happen vaginally and she would prefer to proceed with delivery if able. I discussed section with patient, how procedure is performed and usual recovery. Discussed risks such as bleeding and needing an emergency blood transfusion, she is anemic and will order type and cross. Discussed risk of infection and recommendation for prophylactic antibiotics, she is allergic to penicillin and describes hives, will opt for clindamycin and gentamicin in her case. Discussed risks of damage to nearby organs such as the bladder and interventions to decrease risks such as placement of Andrade catheter. Discussed risks of blood clots and recommendation for post op prophylactic Lovenox. Informed consent given to patient to review and sign. OR team alerted and have given us a 10am start that we have determined to be adequate since patient and baby are stable.
[2023-08-18] MEDS: AZITHROMYCIN 500 MG in 0.9 % SODIUM CHLORIDE 250 ml 250 ML 255 MG IVPB (09:39)
[2023-08-18] MEDS: CLINDAMYCIN 900 MG/50 ML-D5W IVPB (10:20)
--- NOTE | 2023-08-18 11:35 | W.ANESCHARGE ---
Anesthesia Charges Start Date/Time Anesthesia Start Date: 08/18/23 Anesthesia Start Time: 10:12 Stop Date/Time Anesthesia Stop Date: 08/18/23 Anesthesia Stop Time: 11:59 Summary Emergency: MDA
--- NOTE | 2023-08-18 11:53 | PM.OBPRCCS ---
Procedure Date of procedure: 08/18/23 Pre-op diagnosis: Failed induction of labor, IVF Post-op diagnosis: same Procedure Done: only Will [facility] bill your pro fee for this procedure?: Yes Blood Loss Measurement Type: QBL (797mL) Bakri Used: No IV fluids (mL): 1,000 Urine Output (mL): 200 Urine Output Comment: Clear at end of procedure Surgeon: Jonathan Hill MD Anesthesia Type: Spinal Findings: FINDINGS: Live-born male , vertex ROT presentation, Apgars 3, 4 and 8 at 1, 5 and 10 minutes respectively. weight pending . Evidence of bilateral salpingectomy, bilateral grossly normal ovaries. Procedure Name: Primary Low Transverse Section Procedure Description: PROCEDURE: After obtaining informed consent, the patient was taken to the operating room where spinal anesthesia was obtained and found to be adequate. She was prepared and draped in the normal sterile fashion in the dorsal supine position with a leftward tilt. A Pannus retractor was also placed. A Pfannenstiel skin incision was made with a scalpel about 2cm above symphysis pubic bone and about 12-15cm long. This incision was carried down to the underlying layer of fascia with the scalpel and Bovie. The fascia was incised in the midline and the incision extended laterally. The rectus muscles were then in the midline. The Alirio O retractor was then placed into the incision. The lower uterine segment was then incised in a transverse fashion with the scalpel. Upon entry into the uterus, light meconium stained amniotic fluid was noted. The uterine incision was extended cephalo caudally with blunt finger fractionation. The infant's head was delivered atraumatically, one nuchal cord reduced easily and followed by the remainder of the 's body. The nose and mouth were suctioned with the bulb suction. The cord was doubly clamped and cut, and the infant was handed off the field to [facility] for evaluation. Baby needed some resuscitation please refer to pediatric provider note. The placenta was delivered spontaneously with umbilical cord traction and fundal massage. The uterus was cleared of all clots and debris. The uterine incision was reapproximated in a running locking fashion with a 0 Vicryl suture. A 2nd layer of the same suture was used to imbricate in horizontal fashion. The gutters were inspected and cleared of blood clots. All instruments and retractors were removed. The anterior peritoneum was reapproximated in a running fashion with a 3-0 Vicryl suture. The subfascial tissues were carefully inspected and hemostasis assured. There was bleeding noted from separation of muscles at the right side close to the right vertex of the fascial incision. This was managed with multiple interrupted sutures of Vicryl 3-0. Hemostasis secured. The fascia was reapproximated in a running fashion with a looped 0 PDS suture. The subcutaneous tissues were copiously irrigated. Hemostasis was assured. The subcutaneous fat layer was reapproximated with multiple layers of Vicryl 3-0. The skin was closed in a subcuticular fashion with 4-0 Monocryl. LiquiBand and dressing were applied. The patient tolerated the procedure well. Sponge, lap, needle, and instrument counts were reported as correct x2. The patient was taken to the recovery room, awake, and in stable condition. She did receive 500mg of IV Azithromycin, Clindamycin and Gentamicin preoperatively due to significant amoxicillin allergy. Patient also received 1g of TXA after cod clamp, due to anemia upon admission and multiple high risk factors for bleeding during surgery. Complications: None Pathology: specimen obtained, sent to pathology (Placenta) Surgery Debrief Performed: Yes Condition: stable Disposition: floor
--- NOTE | 2023-08-18 12:02 | W.ANESCHARGE ---
Anesthesia Charges Start Date/Time Anesthesia Start Date: 08/18/23 Anesthesia Start Time: 10:12 Stop Date/Time Anesthesia Stop Date: 08/18/23 Anesthesia Stop Time: 11:59 Summary Emergency: MDA
[2023-08-18] MEDS: ACETAMINOPHEN 500 MG TABLET 1000 MG PO ×2 (13:05→19:33)
--- NOTE | 2023-08-18 13:22 | W.PM.NB ---
Nerve Block Nerve Block Time Seen by Provider: 11:50 Date Seen: 08/18/23 Type of block requested by surgeon for post-operative analgesia: TAP Side: bilateral Time out performed: Yes Verification of patient name: Yes Verification of date of : Yes Site marking: site marked Name of person performing procedure: Charanjit Continuous monitoring Was continuous monitoring of O2 sat, B/P, vehicle monitor technician, recorded every 15 minutes?: Yes Procedure Checklist: sterile prep, needles and gloves Ultrasound guided. Images saved: Yes Medications given in 5ml increments after negative aspiration: Marcaine %: 0.25 mL: 30 Needle gauge: 20 and Exparel mL: 10 Patient tolerated procedure well: Yes Additional comments: Needle noted between internal oblique and transversus abdominus. Local spread visualized Block Charges Block Charge (with Pro Fee): TAP Bilateral Use of Ultrasound Machine for Block: Yes- US Guidance/pain block
[2023-08-18] MEDS: CITALOPRAM HYDROBROMIDE 20 MG TABLET 30 MG PO (15:51)
[2023-08-18] MEDS: KETOROLAC 30 MG/ML inj IVP ×2 (17:31→23:36)
[2023-08-18] MEDS: ENOXAPARIN 40 MG/0.4 ML INJ SUBCUT (23:36)
[2023-08-18] MEDS: SODIUM CHLORIDE 0.9 % (FLUSH) 10 ML SYRINGE IVF (23:36)
[2023-08-19] VITALS (16 sets, daily range): BP systolic 106–117; BP diastolic 70–76; PULSE 76–92; RESP 16; TEMP 36.6–36.9; O2SAT 96–98
[2023-08-19 02:19] LABS: Rapid Plasma Reagin (RPR) Non Reactive (Non Reactive)
[2023-08-19] MEDS: ACETAMINOPHEN 500 MG TABLET 1000 MG PO ×4 (03:05→21:21)
[2023-08-19] MEDS: KETOROLAC 30 MG/ML inj IVP ×3 (05:26→17:19)
[2023-08-19 06:18] LABS: Hemoglobin* 8.1 gm/dL (12.0-16.0)
--- NOTE | 2023-08-19 08:15 | PM.OBPNVD1 ---
OB - PN:Subj Subjective Date Seen: 08/19/23 Patient comments OB post-: no complaints and pain well controlled [place] infant status: and doing well [place] feeding status: exclusively Narrative: Ewa is a 33 y.o. who was admitted to L & D for induction of labor.? She had an uncomplicated primary .? ? The patient feels well.? The pain is well controlled with current medications.? She has no new complaints.? She is breast feeding and reports things are going well.? the patient has done well.? Vitals have been stable.? She has remained afebrile.? Has a good appetite, is tolerating a general diet.? She is voiding without difficulty.? She is passing gas and has not had a bowel movement.? She is ambulating and denies any dizziness.? Has Small amount of rubra lochia.? OB - PN: Obj Exam Physical Exam: Vital signs: Temp Pulse Resp BP Pulse Ox O2 Del Method 98 F 79 16 106/73 98 Room Air 08/19/23 04:30 08/19/23 04:30 08/19/23 06:04 08/19/23 04:30 08/19/23 04:30 08/19/23 04:30 Narrative: GENERAL APPEARANCE:? normal affect, alert, no distress MOOD:? appropriate CHEST:? clear to auscultation HEART:? regular rate and rhythm ABDOMEN:? soft, non-tender the uterine fundus is firm At Umbilicus, Midline and is appropriate for the stage of recovery. EXTREMITIES:? normal and no edema Incision: Dressing clean dry and intact, due to be removed today. Urinary Catheter Management: Urethral: Cath placed during this visit: yes, but has since been removed by the nurse Reason for continuing: surgical procedure Removal date: 08/18/23 Removal time: 18:00 OB - PN: Obj Data Labs Labs: Laboratory Results - last 24 hr 08/16/23 08/18/23 08/19/23 21:01 10:05 06:12 Hgb 8.1 L RPR Screen Non Reactive Blood Type B Positive Antibody Screen NEGATIVE Crossmatch (AHG) See Detail OB - PN: A/P Delivery Assessment and Plan (1) resulting from in-vitro fertilization: Status: Acute (2) care and examination immediately after delivery: Status: Acute (3) Status post delivery: Status: Acute (4) Lactating mother: Status: Acute Plan day: 1 Plan: routine care Comments: Assessment/Plan?G 1 P 1 status post uncomplicated primary .? ?? 1.? Continue route PP cares? 2.? .? May see if desired? 3.? Anticipate discharge home tomorrow or the following day per pt preference? 4.? Acute anemia.? Iron supplement ordered?
[2023-08-19] MEDS: OMEPRAZOLE 20 MG CAPSULE DR PO ×2 (09:12→21:21)
[2023-08-19] MEDS: DOCUSATE SODIUM 100 MG CAPSULE PO (09:12)
[2023-08-19] MEDS: FERROUS SULFATE 325 MG TABLET PO (09:12)
[2023-08-19] MEDS: CITALOPRAM HYDROBROMIDE 20 MG TABLET PO (09:12)
[2023-08-19] MEDS: CITALOPRAM HYDROBROMIDE 20 MG TABLET 10 MG PO (11:59)
[2023-08-19] MEDS: ENOXAPARIN 40 MG/0.4 ML INJ SUBCUT ×2 (12:00→23:33)
--- NOTE | 2023-08-19 16:20 | PM.EN ---
Chart Event Note Time Seen by Provider: 16:20 Date Seen: 08/19/23 Chart Event Note: RN called to report heart murmur or rub heard on auscultation of patient. Patient has a history of anxiety and has had palpitations in the past but denies any history of work-up. Patient is s/p section yesterday. No note of abnormal heart sounds with exam this morning. I evaluated patient at bedside. She is calm and denies any pain at this time. She was having some palpitations when RN was listening but none currently. On auscultation, audible soft rumble murmur/rub heard at tricuspid site, it was not audible at mitral site or pulmonic site. Discussed probable cause of this is likely fluid shifting. Reviewed causes relating to , , and surgical procedure. Discussed further testing necessary if chest pain, worsening or more frequent heart palpations, SOB, or dizziness. She denies these. Offered EKG testing for reassurance but would not recommend ECHO or other testing unless symptomatic. She would desire EKG, preformed by Med Surg Nurse. Transient Murmur, likely EKG results reviewed by behavioral assistant with ER Dr. Copeland who agrees normal findings. Discussed possible cause of murmur related to fluid shifting. If not resolved in 6 weeks, consider repeat EKG or further testing. Patient agrees with plan.
[2023-08-19] MEDS: SODIUM CHLORIDE 0.9 % (FLUSH) 10 ML SYRINGE IVF (17:21)
[2023-08-19] MEDS: IBUPROFEN 600 MG TABLET PO (23:34)
[2023-08-20] MEDS: ACETAMINOPHEN 500 MG TABLET 1000 MG PO ×2 (03:43→10:11)
[2023-08-20 03:46] VITALS: BP 115/79; PULSE 76; RESP 16; TEMP 36.8; O2SAT 97
[2023-08-20] MEDS: IBUPROFEN 600 MG TABLET PO (06:07)
[2023-08-20 08:25] VITALS: BP 126/83; PULSE 78; RESP 16; TEMP 36.8; O2SAT 98
[2023-08-20] MEDS: OMEPRAZOLE 20 MG CAPSULE DR PO (08:43)
[2023-08-20] MEDS: CITALOPRAM HYDROBROMIDE 20 MG TABLET 30 MG PO (08:43)
[2023-08-20] MEDS: FERROUS SULFATE 325 MG TABLET PO (08:44)
[2023-08-20] MEDS: DOCUSATE SODIUM 100 MG CAPSULE PO (08:44)
--- NOTE | 2023-08-20 09:02 | PM.OBDSVD1 ---
DS: Providers Provider Date Seen: 08/20/23 Date of admission: 08/16/23 16:56 Primary care physician: Sarah Gilliam MD Admitting Clinician: Sarah Gilliam MD Attending Physician on discharge: Sarahy Hill MD DS: Diagnosis Discharge Diagnosis (1) Lactating mother: Status: Acute (2) Status post delivery: Status: Acute (3) care and examination immediately after delivery: Status: Acute (4) Depression with anxiety: Status: Acute (5) Murmur: Status: Acute Exam Narrative: Exam Narrative: GENERAL APPEARANCE:? normal affect, alert, no distress MOOD:? appropriate CHEST:? clear to auscultation HEART:? regular rate and rhythm ABDOMEN:? soft, non-tender the uterine fundus is At Umbilicus, Midline and is appropriate for the stage of recovery. LOCHIA: small EXTREMITIES:? normal and no edema INCISION: Healing well, small of erythema on right edge, no other surrounding erythema, abnormal induration or discharge Const: Vital Signs, click to edit/add: Vital Signs - 24 hr 08/19/23 09:30 08/19/23 10:21 08/19/23 12:00 Temperature 98.5 F Pulse Rate [Bilate ral Pulse Oximeter ] 85 Respiratory Rate 16 16 16 Blood Pressure [Ri ght Arm] 117/75 Pulse Oximetry 97 Oxygen Delivery Me thod Room Air 08/19/23 15:40 08/19/23 21:27 08/20/23 03:46 Temperature 98.5 F 98.3 F 98.2 F Pulse Rate [Bilate ral Pulse Oximeter ] 92 80 76 Respiratory Rate 16 16 16 Blood Pressure [Ri ght Arm] 110/76 114/76 115/79 Pulse Oximetry 96 97 97 Oxygen Delivery Me thod Room Air Room Air Room Air 08/20/23 08:25 Temperature 98.2 F Pulse Rate [Bilate ral Pulse Oximeter ] 78 Respiratory Rate 16 Blood Pressure [Ri ght Arm] 126/83 Pulse Oximetry 98 Oxygen Delivery Me thod Room Air OB - DS: Summary Hospital Course Hospital Course: Ewa is a 33 y.o. G 1 P 1 who was admitted to [facility] & D for induction of labor. ?She had a section that was uncomplicated. The patient feels well. ?The pain is well controlled with current medications. ?She has no new complaints. Yesterday she was evaluated for murmur, likely related to fluid shifting. No concerns today.?She is breast feeding and reports things are going [well]. the patient has done well.? Vitals have been stable.? She has remained afebrile.? Has a good appetite, is tolerating a general diet. ?She is voiding without difficulty.? She is passing gas and has [not] had a bowel movement.? She is ambulating and denies any dizziness.? Has small amount of rubra lochia. She is planning [] for prevention. Problems: Transient murmur plan: Discharge home with baby. Follow up in 2 weeks and 6 weeks. , may see if needed Hgb 8.1. Iron supplement ordered orally every other day Transient Murmur EKG WNL Peripartum Data Infant delivery method: Primary C/S; Labored Laceration description: None Procedures: Procedures Operation Date: 08/18/23 10:15 Actual Procedure Side Surgeon p Section Sarahy Hill MD complications: none Gender: Male Discharge Plan: Home Status at Discharge Functional status at discharge: independent ambulation Overall status at discharge: patient is progressing back to baseline Time Spent with Patient Time attestation: Total time spent providing and/or coordinating discharge services: Time spent: Less than 30 minutes Discharge Plan Discharge Disposition: Home, Self-Care Date of Admission: 08/16/23 16:56 Attending Provider on Discharge: Ann-Marie Reyes Primary Care Provider: Sarah Gilliam Condition: Stable Anticipated Discharge Date/Time: 08/20/23 12:00 Discharge Medications: New acetaminophen 500 mg Tablet 1,000 mg PO Q6H PRN (Reason: Pain) Qty: 0 0RF ferrous sulfate 325 mg (65 mg iron) Tablet 325 mg PO DAILYWM Qty: 90 0RF docusate sodium 100 mg Capsule 100 mg PO DAILY Qty: 90 0RF ibuprofen 600 mg Tablet 600 mg PO Q6H PRN (Reason: Pain) Qty: 60 0RF oxycodone 5 mg Tablet 5 - 10 mg PO Q4H PRN (Reason: Pain) Qty: 10 0RF Continued Zyrtec 10 mg capsule 10 mg PO QDAY PRN omeprazole 20 mg capsule,delayed release(DR/EC) 20 mg PO BID ondansetron 4 mg tablet,disintegrating 4 mg PO Q6H PRN (Reason: nausea and vomiting) Qty: 30 1RF prenat.vits,mayco,bdc-aoxk-azjov Tablet 1 tab PO QDAY cholecalciferol (vitamin D3) 125 mcg (5,000 unit) capsule 125 mcg PO QDAY citalopram 10 mg tablet 30 mg PO QDAY Discontinued aspirin [Aspirin Childrens] 81 mg tablet,chewable 81 mg PO DAILY Discharge Orders: Discharge Order (Routine); Ordered 08/20/23 Ordered By: Ann-Marie Reyes Patient Education: OB Over the Counter Medication Information, OB /Breast Feeding Additional Instructions: Discharge instructions were reviewed with the patient including signs and symptoms of infection and home going medications Lifting Restrictions: 20 pounds for 6 weeks No not submerge incision under water X 2 weeks? Nothing vaginally for 6 weeks: no tampons or intercourse Do not drive while taking narcotic pain medication(s) Off Work or School for 8 weeks 2-week visit: incision check, discuss feeding concerns, review control options and screen for anxiety/depression. 6-week visit for an annual exam. consultation services are available to all mothers and babies for the first year after delivery.? To make an appointment, please call [phone]. Activity Level: Activity as Tolerated Discharge Diet: Regular Follow Up Appointments: [facility] [Provider Group] Sarah Gilliam MD [Primary Care Provider] - Forms: [employer] PTY Info Instructions
[2023-08-20] MEDS: ENOXAPARIN 40 MG/0.4 ML INJ SUBCUT (11:16)
== END 2023-08-20 11:30 | disposition home or self-care (01) | DRG 787 ==
LOC: OB 16:57
PROVIDERS: Obstetrics & Gynecology; Admitting Provider Family Medicine; PCP Family Medicine; Visit Provider Obstetrics & Gynecology
PROC: (CPT 59514; principal; 2023-08-18 10:00)
DX: O61.0 Failed medical induction of labor (principal); D62 Acute posthemorrhagic anemia; Z3A.39 39 weeks gestation of pregnancy; O99.214 Obesity complicating childbirth; O99.344 Other mental disorders complicating childbirth; F41.9 Anxiety disorder, unspecified; F32.A Depression, unspecified; O99.892 Other specified diseases and conditions complicating childbirth; D27.1 Benign neoplasm of left ovary; O77.0 Labor and delivery complicated by meconium in amniotic fluid; O99.824 Streptococcus B carrier state complicating childbirth; O90.81 Anemia of the puerperium; R01.1 Cardiac murmur, unspecified; O99.62 Diseases of the digestive system complicating childbirth; K21.9 Gastro-esophageal reflux disease without esophagitis; G89.18 Other acute postprocedural pain; Z37.0 Single live birth; Z90.79 Acquired absence of other genital organ(s)
CPT/HCPCS: 01967; 01968; 36415; 59200; 64488; 76942; 82803; 84112; 85018; 85025; 86592; 86850; 86900; 86901; 86922; 88307; 93005; 99140; G0463; A9270; C1726; C9290; J0456; J0665; J0736; J1100; J1200; J1580; J1650; J1885; J2270; J2274; J2371; J2405; J2590; J2765; J2795; J3010; J7050; J7120

== ENCOUNTER 2024-05-24 06:01 | Day surgery (SDC) | payer OTHER, SELFPAY ==
--- OUTSIDE RECORDS SUMMARY | 2024-05-24 06:06 | XMS_ITS | Clinical Summary ---
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 Name Role Phone System, Provider Not In Primary Care Provider Un available 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 Tobacco Use Types Packs/Day Years Used Date Smoking Tobacco: Never Assessed Adolescent Education Answer Date Record ed Getting School Help Needed Not on file 01/10 Comments Unknown Sex and Gender Information Value Date Recorded Sex Assigned at Not on file Legal Sex Female 9:57 AM [employer] Gender Identity Not on file Sexual Orientation Not on file Plan of Treatment Health Maintenance Due Date Last Done Comments ADVANCE CARE PLANNING 1990 ANNUAL REVIEW OF HM ORDERS 1990 YEARLY PREVENTIVE VISIT 1993 HIV SCREENING 2005 HEPATITIS C SCREENING 2008 PAP 07/08/2011 COVID-19 Vaccine ( season) 2023 06/12/2020, 05/15/2020 INFLUENZA VACCINE (#1) 2023 , 04/30/2021, 12/28/2019, Additional history exists PHQ-2 (once per calendar year) 2024 DTAP/TDAP/TD IMMUNIZATION (8 - Td or Tdap) 03/16/2027 03/16/2017, 11/18/2007, 11/11/2001, Additional history exists ZOSTER IMMUNIZATION (1 of 2) 2040 RSV VACCINE (1 - 1-dose 75+ series) 2065 HPV IMMUNIZATION Completed 07/15/2007, , 11/27/2006 MENINGITIS IMMUNIZATION Completed 11/18/2007 HEPATITIS B IMMUNIZATION Completed 018, 06/06/2002, 12/14/2001, Additional history exists Pneumococcal Vaccine: Pediatrics (0 to 5 Years) and At-Risk Patients (6 to 49 Years) Aged Out No longer eligible based on patient's age to complete this topic RSV MONOCLONAL ANTIBODY Aged Out No l onger eligible based on patient's age to complete this topic Insurance [facility] CHOICE Care Teams 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
--- OUTSIDE RECORDS SUMMARY | 2024-05-24 06:06 | XMS_ITS | Clinical Summary ---
Author Organization [facility] Address [place], [place] [address] Care Team Providers Care [employer] Name Role Phone Tawana, Sarah Devlin MD Primary Care Provider Nacho Leiva MD Unavailable [phone] Anu Vaz MD Unavailable [phone] Allergies Active Allergy Reactions Criticality Noted Date Comments Amoxicillin Hives 11/14/2005 Medications cetirizine (ZYRTEC) 10 mg tablet Take 1 tablet by mouth once daily. 0 05/21/2016 Active cholecalciferol (VITAMIN D3) 5,000 unit capsule Take by mouth. 06/13/2022 Active citalopram (CELEXA) 40 mg tabletIndicatio ns:Anxiety state Take 1 Tablet (40 mg) by mouth once daily in the morning. 90 Tablet 3 09/08/2023 Active Apri tablet Take 1 Tablet by mouth once daily. 03/29/2024 Active pantoprazole (PROTONIX) 40 mg delayed-release tabletIndicatio ns:Gastroesopha geal reflux disease without esophagitis,Hia noel hernia Take 1 Tablet (40 mg) by mouth once daily. Take 30 minutes before a meal on empty stomach 90 Tablet 3 04/05/2024 Active sucralfate (Carafate) 100 mg/mL suspensionIndic ations:Gastroes ophageal reflux disease without esophagitis,Hia noel hernia Take 10 mL (1,000 mg) by mouth four times daily before meals and at bedtime. Take on empty stomach. 1200 mL 2 04/05/2024 Active Active Problems Problem Noted Date Diagnosed Date Murmur 04/05/2024 Status post delivery 04/05/2024 Hiatal hernia 03/24/2024 Gastric polyps 03/24/2024 Obesity during in second trimester 08/2023 In vitro fertilization 04/03/2023 Obesity (BMI 30.0-34.9) 09/16/2022 GERD (gastroesophageal reflux disease) 5 Overview (06/02/2014): EGD 05/2014 normal PHILIP 07/01/2011 AHI-5 07/09/2011 Viral warts, unspecified 07/17/2008 Other specified gastritis without mention of hem orrhage 11/14/2005 Anxiety state, unspecified 11/14/2005 Resolved Problems Problem Noted Date Diagnosed Date Resolved Date Nausea and vomiting during 04/05/2024 04/05/2024 Ovarian cyst affecting , antepartum 04/05/2024 resulting from ass isted reproductive technology in second trimester 04/24/2023 04/05/2024 03/24/2023 04/05/2024 Overview (08/07/2023): Estimated Date of Delivery: 08/22/23 IVF transfer [...] 70-139 mg/dL on 05/08/2023 at 11:09 AM HANDKERCHIEF SAMPLE CLERK HEMOGLOBIN Date Value Ref Range Status 05/08/2023 10.6 (L) 12.0 - 16.0 g/dL Final TREPONEMA PALLIDUM Date Value Ref Range Status 05/08/2023 Non-Reactive Non-Reactive Final Last Tdap- 06/19/23 Last Flu vaccine- 01/23/23 OB Labs: Done at [facility] 01/23/23 B pos Antibody neg Rubella immune [...] episode. Dory Joseph RN ....03/24/2023 3:05 PM [facility] Supervision of high-risk 03/17/2023 04/05/2024 Overview (04/17/2023): Ewa Bergeron : 1990 [facility] ULTRASOUND/TESTING PATIENT Support person name: Tres ULTRASOUND [...] REFERRING PHYSICIAN/PHONE/LAST UPDATE: Anu Vaz MD - [place] Primary MD approves scheduling of recommended ultrasounds/testing: [...] remaining anatomy and growth (will schedule with [facility]) - Recommend weekly testing at 36 weeks for IVF - Consider delivery at 39 weeks due to IVF (risk/benefit discussion with provider suggested) Depression with anxiety 06/13/201101/18 Encounters Date Type Department Care Team Description 05/18/2024 10:05 AM HANDKERCHIEF SAMPLE CLERK Office Visit [facility] [address] [facility] [address] Sarah Gilliam MD Pre-Op Exam (Hysteroscopy/D&C [facility] 05/24/24 Dr. Mahoney) 05/18/2024 Travel 05/13/2024 Travel 05/03/2024 Travel 04/11/2024 9:45 AM HANDKERCHIEF SAMPLE CLERK Ancillary Procedure [facility] [address] [facility] [address] 04/10/2024 Travel 04/05/2024 7:30 AM HANDKERCHIEF SAMPLE CLERK Office Visit [facility] [address] [facility] [address] [place] [address] Isatu Hensley NP Consult (GERD) 04/04/2024 Travel 03/31/2024 Orders Only [facility] [address] [place] [address] Yolanda Kaplan MD <No scans attached> 03/31/2024 Orders Only [facility] [address] [place] [address] Isis Hoyt PA <No scans attached> 03/31/2024 Telephone [facility] [address] [facility] [address] [place] [address] Yolanda Kaplan MD Questions 03/29/2024 11:00 AM HANDKERCHIEF SAMPLE CLERK Ancillary Procedure [facility] [place] [place] [address] [place] [address] 03/29/2024 Travel 03/28/2024 12:48 PM HANDKERCHIEF SAMPLE CLERK - 03/28/2024 11:59 PM HANDKERCHIEF SAMPLE CLERK Hospital Encounter [facility] [address] [place] [address] Yolanda Kaplan MD 03/28/2024 Orders Only [facility] [address] [facility] [place] [address] Yolanda Kaplan MD <No scans attached> 03/24/2024 10:25 AM HANDKERCHIEF SAMPLE CLERK - 03/24/2024 10:55 AM HANDKERCHIEF SAMPLE CLERK Surgery [facility] [address] [place], [place] [address] [address] Yolanda Kaplan MD ESOPHAGOGASTRODUODENOSCOPY WITH CAPSULE PLACEMENT 03/24/2024 10:19 AM HANDKERCHIEF SAMPLE CLERK Anesthesia Event [facility] [address] [place], [place] [address] [address] Michael Amos MD Barry, Karyn Elaine, HOME HEALTH PROVIDER 03/24/2024 9:22 AM HANDKERCHIEF SAMPLE CLERK - 03/24/2024 11:12 AM HANDKERCHIEF SAMPLE CLERK [address] [place] [address] Yolanda Kaplan MD Discharge Disposition: Home Self Care 03/24/2024 Travel 03/21/2024 Telephone [facility] [address] [address] [place] [address] Yolanda Kaplan MD Questions 03/16/2024 11:15 AM HANDKERCHIEF SAMPLE CLERK Orders Only [facility] [place] [place] [address] [place] [address] Lab[facility] 03/15/2024 Travel 03/02/2024 9:28 AM HANDKERCHIEF SAMPLE CLERK - 03/02/2024 11:59 PM HANDKERCHIEF SAMPLE CLERK Hospital Encounter [facility] [address] [place], [place] [address] [address] Yolanda Kaplan MD Hiatal hernia; Gastroesophageal reflux disease without esophagitis 03/02/2024 Travel from Last 3 Months Immunizations Name Administration Dates Next Due COVID-19 vaccine (Moderna 100mcg/0.5mL) JODI RICE 06/12/2020,05/15/2020 DTP 08/04/1995, 2,01/17/1991,11/12,1990 HIB PRP-OMP (PedvaxHIB) 11/07/1991,01/17,1990,08/30 Hepatitis B (Adult) 09/16/2017 Hepatitis B (Peds) 06/06/2002,12/14/2001, 002 Human Papilloma Virus Vaccine 07/15/2007, 007,11/27/2006 INFLUENZA, IIV3 PF (AGE >= 6 MO) 01/04/2024 Influenza Virus, Unspecified 02/11/2022 Influenza, IIV3 (Age [...] Alcohol Use Standard Drinks/Week Comments Not Currently 0 (1 standard drink = 0.6 oz pur e alcohol) PHQ-2 Answer Date Recorded PHQ-2 TOTAL SCORE 0 10/01/2023 Social Connections Answer Date Recorded Do you often feel lonely or isolated from those around you? 0 07/22/2023 Financial Resource Strain Answer Date R ecorded Difficulty of Paying Living Expenses 3 07/22/2023 Difficulty of Paying Living Expenses Not on file 07/22/2023 Food Insecurity Answer Date Recorded Do you worry your food will run out before you are able to buy more? 1 07/22/2023 Transportation Needs Answer Date Record ed Does lack of transportation keep you from medica l appointments? 1 07/22/2023 Does lack of transportation keep you from work, meetings or getting things that you need? 1 07/22/2023 Housing Stability Answer Date Recorded What is your housing situation today? 1 07/22/2023 Utilities Answer Date Recorded Do you have trouble paying f or utilities (for example, heat, electricity, water, phone)? 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 Not on file Not on file Not on file Obstetrics History Para Term AB IAB SAB Ectopic Multiple Livin g Live Births 1 1 1 1 Date Outcome GA Total Labor Labor/2nd/3rd Weight Sex Type Anes PTL Amina A1 A5 Name Clin 024 Term 39w 3d M CS-LT ranv N Livin g 3 4 Nolan Complications:Failure to Pro brandyn in First Stage Last Filed Vital Signs Vital Sign Reading Time Taken Comments Blood Pressure 112/61 05/18/2024 10:02 AM HANDKERCHIEF SAMPLE CLERK Pulse 70 05/18/2024 10:02 AM HANDKERCHIEF SAMPLE CLERK Temperature 36.1 C (97 F) 03/24/2024 9:37 AM HANDKERCHIEF SAMPLE CLERK Respiratory Rate 16 03/24/2024 11:0 2 AM HANDKERCHIEF SAMPLE CLERK Oxygen Saturation 97% 05/18/2024 10: 02 AM HANDKERCHIEF SAMPLE CLERK Inhaled Oxygen Concentration - - Weight 92.3 kg (203 lb 6.4 oz) 05/18/2024 10:02 AM HANDKERCHIEF SAMPLE CLERK Height 158.8 cm (5' 2.5) 04/05/2024 7: 37 AM HANDKERCHIEF SAMPLE CLERK Patient reported Body Mass Index 36.61 04/05/2024 7:37 AM HANDKERCHIEF SAMPLE CLERK Plan of Treatment Health Maintenance Due Date Last Done Comments Hepatitis C screening for age 18-79 2008 COVID-19 vaccine series ( season) 2023 06/12/2020, 05/15/2020 Depression screening for age 12+ 09/30/2024 10/01/2023, 02/20/2023, 01/20/2023, Additional history exists BMI (ht and wt on same day) for age 18+ 04/05/2025 04/05/2024, 02/15/2024, 10/01/2023, Additional history exists Pap test for age 21-65 01/23/2026 3, 01/23/2023, 02/27/2020, Additional history exists Tetanus booster 06/18/2033 06/19/2023, 02/19, 11/18/2007, Additional history exists HIV for age 15-65 Completed 03/05/2009 Tdap Completed 06/19/2023, 02/19, 11/18/2007 Influenza for age 9-49 Completed 4, 01/23/2023, 02/11/2022, Additional history exists Pneumococcal series for age 6-49 Aged Out No longer eligible based on patient's age to complete this topic Procedures Procedure Name Priority Date/Time Associated Diagnosis Comments FERRITIN Routine 05/18/2024 11:07 AM HANDKERCHIEF SAMPLE CLERK Fatigue, unspecified type HEMOGLOBIN Routine 05/18/2024 11:07 AM HANDKERCHIEF SAMPLE CLERK Fatigue, unspecified type TSH WITH REFLEX Routine 05/18/2024 11:07 AM HANDKERCHIEF SAMPLE CLERK Fatigue, unspecified type US ABDOMEN LIMITED RUQ Routine 10:04 AM HANDKERCHIEF SAMPLE CLERK Upper abdominal pain XR ABDOMEN 1 VIEW Routine 03/29/2024 10:55 AM HANDKERCHIEF SAMPLE CLERK Gastroesophageal reflux disease without esophagitis ENDOSCOPY 03/28/2024 12:57 PM HANDKERCHIEF SAMPLE CLERK PATH TISSUE EXAM Today 03/24/2024 10:25 AM HANDKERCHIEF SAMPLE CLERK ESOPHAGOGASTRODUODENOSCOPY WITH POLYPECTOMY 03/24/2024 10:14 AM HANDKERCHIEF SAMPLE CLERK Gastric polyp, Hiatal hernia Case Notes judd ESOPHAGOGASTRODUODENOSCOPY WITH BIOPSY 03/24/2024 10:14 AM HANDKERCHIEF SAMPLE CLERK Gastric polyp, Hiatal hernia Case Notes judd ESOPHAGOGASTRODUODENOSCOPY WITH CAPSULE PLACEMENT 03/24/2024 10:14 AM HANDKERCHIEF SAMPLE CLERK Gastric polyp, Hiatal hernia Case Notes judd ENDOSCOPY 03/24/2024 10:07 AM HANDKERCHIEF SAMPLE CLERK XR UPPER GI Routine 03/02/2024 10:04 AM HANDKERCHIEF SAMPLE CLERK Hiatal hernia Gastroesophageal reflux disease without esophagitis HPV HIGH RISK Routine 01/23/2023 9:00 AM CDT ANTI HIV 1/2 Routine 03/05/2009 5:05 PM HANDKERCHIEF SAMPLE CLERK Well Female Exam with Routine Gynecological Exam from Last 3 Months or Most Recently Relevant to Health Maintenance Results * TSH WITH REFLEX (05/18/2024 11:07 AM HANDKERCHIEF SAMPLE CLERK) TSH W/REFLEX TO FT4 1.02 mIU/L [facility] Comment: Reference Range > or = 20 Years 0.40-4.50 Ranges First trimester 0.26-2.66 Second trimester 0.55-2.73 Third trimester 0.43-2.91 Blood BLOOD SPECIMEN / Unknown 05/18/2024 11:07 AM HANDKERCHIEF SAMPLE CLERK 05/18/2024 11:08 AM HANDKERCHIEF SAMPLE CLERK Sarah Gilliam MD CHEMISTRY Final R esult [facility] [address] [place] [address], [place] [phone] [facility] [address] [place] [address] * HEMOGLOBIN (05/18/2024 11:07 AM HANDKERCHIEF SAMPLE CLERK) HEMOGLOBIN 12.2 11.7 - 15.5 g/dL [facility] Blood BLOOD SPECIMEN / Unknown 05/18/2024 11:07 AM HANDKERCHIEF SAMPLE CLERK 05/18/2024 11:08 AM HANDKERCHIEF SAMPLE CLERK Sarah Gilliam MD HEMATOLOGY Final R esult Performing Organization Address City/[facility]/ZIP Co de Phone Number [facility] [address] [place] [address], [place] [phone] [facility] [address] [place] [address] * (ABNORMAL) FERRITIN (05/18/2024 11:07 AM HANDKERCHIEF SAMPLE CLERK) FERRITIN 10(L) 16 - 154 ng/mL [facility] Blood BLOOD SPECIMEN / Unknown 05/18/2024 11:07 AM HANDKERCHIEF SAMPLE CLERK 05/18/2024 11:08 AM HANDKERCHIEF SAMPLE CLERK Sarah Gilliam MD CHEMISTRY Final R esult [facility] [address] [place] [address], [place] [phone] [facility] [address] [place] [address] * US ABDOMEN LIMITED RUQ (04/11/2024 10:04 AM HANDKERCHIEF SAMPLE CLERK) Anatomical Region Laterality Modality Abdomen, LIVER Ultrasound 04/11/2024 11:3 1 AM HANDKERCHIEF SAMPLE CLERK Impressions 04/11/2024 11:31 AM HANDKERCHIEF SAMPLE CLERK Normal right upper quadrant ultrasound. Dictated by Shashank Fernández MD @ 04/11/2024 11:31:52 AM (Electronically Signed) Narrative 04/11/2024 11:31 AM HANDKERCHIEF SAMPLE CLERK For Patients: As a result of the Cures Act, medical imaging exams and procedure reports are released immediately into your electronic medical record. You may view this report before your referring provider. If you have questions, please contact your health care provider. INDICATION: Upper abdominal pain COMPARISON: none TECHNIQUE: Real time العراقي scale imaging and color Doppler analysis was performed of the right upper quadrant. FINDINGS: The patient`s liver is of normal size and has uniform echogenicity. There is a normal appearance of the hepatic IVC and proximal abdominal aorta. There is no evidence of ascites. The gallbladder is of normal size and there is no evidence of intraluminal stones or sludge. The gallbladder wall measures 1 mm in thickness. The common bile duct is of normal size and measures 4 mm in diameter at the level of the samaria hepatis. The pancreas appears normal. There is no evidence of a stone or hydronephrosis within the right kidney. The right kidney measures 11.0 cm in length. Procedure Note Shashank Fernández MD - 04/11/2024 For Patients: As a result of the Cures Act, medical imagingexams and procedure reports are released immediately into your electronicmedical record. You may view this report before your referring provider.If you have questions, please contact your health care provider. INDICATION: Upper abdominal pain COMPARISON: none TECHNIQUE: Real time العراقي scale imaging and color Doppler analysis was performed ofthe right upper quadrant. FINDINGS: The patient`s liver is of normal size and has uniform echogenicity. Thereis a normal appearance of the hepatic IVC and proximal abdominal aorta.There is no evidence of ascites. The gallbladder is of normal size andthere is no evidence of intraluminal stones or sludge. The gallbladderwall measures 1 mm in thickness. The common bile duct is of normal sizeand measures 4 mm in diameter at the level of the samaria hepatis. Thepancreas appears normal. There is no evidence of a stone orhydronephrosis within the right kidney. The right kidney measures 11.0 cmin length. IMPRESSION: Normal right upper quadrant ultrasound. Dictated by Shashank Fernández MD @ 04/11/2024 11:31:52 AM (Electronically Signed) us Isatu Hensley NP US Final Re sult * XR ABDOMEN 1 VIEW (03/29/2024 10:55 AM HANDKERCHIEF SAMPLE CLERK) Anatomical Region Laterality Modality Abdomen Computed Radiogr aphy 03/29/2024 2:17 PM HANDKERCHIEF SAMPLE CLERK Impressions 03/29/2024 2:17 PM HANDKERCHIEF SAMPLE CLERK 1. Unremarkable appearance of the visualized abdomen. Dictated by Matthew Hart MD @ 03/29/2024 2:17:05 PM Dictated by: Matthew Hart MD @ 03/29/2024 14:17:10 (Electronically Signed) Narrative 03/29/2024 2:17 PM HANDKERCHIEF SAMPLE CLERK For Patients: As a result of the Cures Act, medical imaging exams and procedure reports are released immediately into your electronic medical record. You may view this report before your referring provider. If you have questions, please contact your health care provider. INDICATION: Gastroesophageal reflux disease without esophagitis TECHNIQUE: Abdomen Pelvis radiograph 2 views COMPARISON: 03/05/2009 FINDINGS: Bowel: Moderate amount of stool is present in the right colon which may be due to chronic constipation. The bowel gas pattern is normal without evidence of bowel obstruction. Soft tissue: No evidence of pneumoperitoneum present. No suspicious calcifications noted. Bone: Unremarkable for age. Procedure Note Matthew Hart MD - 03/29/2024 For Patients: As a result of the s Act, medical imagingexams and procedure reports are released immediately into your electronicmedical record. You may view this report before your referring provider.If you have questions, please contact your health care provider. INDICATION: Gastroesophageal reflux disease without esophagitis TECHNIQUE: Abdomen Pelvis radiograph 2 views COMPARISON: 03/05/2009 FINDINGS: Bowel: Moderate amount of stool is present in the right colon which may bedue to chronic constipation. The bowel gas pattern is normal withoutevidence of bowel obstruction. Soft tissue: No evidence of pneumoperitoneum present. No suspiciouscalcifications noted. Bone: Unremarkable for age. IMPRESSION: 1. Unremarkable appearance of the visualized abdomen. Dictated by Matthew Hart MD @ 03/29/2024 2:17:05 PM Dictated by: Matthew Hart MD @ 03/29/2024 14:17:10 (Electronically Signed) us Yolanda Kaplan MD GENERAL IMAGING Final Res ult * ENDOSCOPY (03/28/2024 12:57 PM HANDKERCHIEF SAMPLE CLERK) 03/28/2024 12:5 7 PM HANDKERCHIEF SAMPLE CLERK Narrative Transcriptions Yolanda Kaplan MD - 03/31/2024 4:47 PM CST Endoscopy Patient Name: Ewa Bergeron Procedure Date: 03/28/2024 Gender: Female Date of : 1990 Admit Type: Outpatient Procedure: Esophageal JUDD pH Capsule Results / Interpretation Proceduralist: Yolanda Kaplan MD , Melva Dumont, RN (Nurse) (Judd download) Procedure Description: The JUDD pH capsule was previously placed. Results from that studywere obtained for interpretation. Findings: Acid Exposure time (%) 15.2 (normal <4.9) Day 1 Acid Exposure time (%) 21.2 Day 2 Acid Exposure time (%) 9.2 Symptom association prob. (SAP) DeMeester Score Total: 52.4 (normal <14.7) Day 1: 69.6 (normal <14.7) Day 2: 31.6 (normal <14.7) Impressions/Post-Op Diagnosis: - The complete results of this study (for the same date as above) are available in the patient's chart, and these results were personally reviewed by me. - Acid reflux is the cause of the patient's symptoms; there is excess acid exposure with good symptom correlation. Recommendation: - Follow up in the clinic to discuss results and develop a treatment plan. Yolanda Kaplan MD 03/31/2024 4:46:51 PM This report has been signed electronically. Note Initiated On: 03/28/2024 12:57 PM us Yolanda Kaplan MD PROCEDURE ORD Final Res ult * PATH TISSUE EXAM (03/24/2024 10:25 AM HANDKERCHIEF SAMPLE CLERK) Case Report Pathology Report Case: [id number] Authorizing Provider: Yolanda Kaplan MD Collected: 03/24/2024 1025 Ordering Location: [facility] Received: 03/24/[address] [place] [address] Pathologist: Linwood Johnson MD Specimens: A) - Antrum Biopsy, R/O Hpylori B) - Gastric Polyp 03/28/2024 8:48 AM HANDKERCHIEF SAMPLE CLERK [facility] Final Diagnosis A) STOMACH, ANTRUM, BIOPSY: 1. Normal gastric antral and body mucosae 2. Negative for Helicobacter B) STOMACH, polyp, BIOPSY:, 1. Fundic gland polyp 2. Normal background body mucosa 3. Negative for dysplasia and malignancy 03/28/2024 8:48 AM HANDKERCHIEF SAMPLE CLERK [facility] Clinical Information Ms. Bergeron is a 33 y.o. with GERD symptoms that prompted upper GI endoscopy which noted an irregular Z-line, 2 cm hiatal hernia, three 3-4 mm gastric body polyps. Biopsies obtained to assess for microscopic disease. 03/28/2024 8:48 AM HANDKERCHIEF SAMPLE CLERK [facility] Gross Description A) Received in formalin are 3 de la cruz mucosal fragments ranging from 1 mm to 6 mm in greatest dimension, which are entirely submitted in one cassette. It is labeled with the patient's name and designated antrum biopsy. B) Received in formalin is a de la cruz mucosal fragment measuring 3 mm in greatest dimension, which is entirely submitted in one cassette. It is labeled with the patient's name and designated gastric polyp. Radha Hemphill 03/24/2024 8:15 PM 03/28/2024 8:48 AM HANDKERCHIEF SAMPLE CLERK [facility] Microscopic Description The final diagnosis is based on microscopic examination of appropriate sections of all specimens. 03/28/2024 8:48 AM HANDKERCHIEF SAMPLE CLERK [facility] Additional Information Interpreted at [facility] - [address] [facility] [address], [place] [address] 03/28/2024 8:48 AM HANDKERCHIEF SAMPLE CLERK [facility] Biopsy (Antrum Biopsy) 03/24/2024 10:25 AM HANDKERCHIEF SAMPLE CLERK 03/24/2024 3:33 PM HANDKERCHIEF SAMPLE CLERK Specimen from mass lesion (specimen) (Gastric Polyp) 03/24/2024 10:26 AM HANDKERCHIEF SAMPLE CLERK 03/24/2024 3:33 PM HANDKERCHIEF SAMPLE CLERK us Yolanda Kaplan MD PATHOLOGY/CYTOLOGY Final Result [facility] [address] [place] [address], * ENDOSCOPY (03/24/2024 10:07 AM HANDKERCHIEF SAMPLE CLERK) 03/24/2024 10:0 7 AM HANDKERCHIEF SAMPLE CLERK Narrative Transcriptions Yolanda Kaplan MD - 03/24/2024 10:40 AM CST Endoscopy Patient Name: Ewa Bergeron Procedure Date: 03/24/2024 Gender: Female Date of : 1990 Admit Type: Outpatient Procedure: Upper GI endoscopy Proceduralist: Yolanda Kaplan MD Referring MD: Yolanda Kaplan MD Indications/Pre-Op Diagnosis: Gastro-esophageal reflux disease, Hiatalhernia Medications: Monitored Anesthesia Care Procedure Description: Risk of bleeding, infection, perforation, need for surgery and alternatives discussed. The endoscope [id number] was introduced through the mouth, and advanced to the second part of duodenum. The upper GI endoscopy was accomplished without difficulty. The patient tolerated the procedure well. Complications: No immediate complications. Estimated Blood Loss & Specimen: Estimated blood loss: none. Specimen collected: Yes and sent to Laboratory Findings: The Z-line was irregular and was found 33 cm from the incisors. The gastroesophageal flap valve was visualized endoscopically and classified as Hill Grade III (minimal fold, loose to endoscope,hiatal hernia likely). A 2 cm hiatal hernia was present. Three 3 to 4 mm pedunculated polyps with no bleeding and no stigmataof recent bleeding were found on the greater curvature of the gastricbody. Biopsies were taken with a cold forceps for histology. Biopsies were taken with a cold forceps in the gastric antrum for Helicobacter pylori testing. The examined duodenum was normal. The JUDD capsule with delivery system was introduced through themouth and advanced into the esophagus, such that the JUDD pH capsule was positioned 27 cm from the incisors, which was 6 cm proximal to the GE junction. Suction was applied to the well of the JUDD pH capsule to suck in the adjacent mucosa of the esophagus using the externalvacuum pump for 60 seconds. The JUDD pH capsule was then deployed by depressing the plunger on top of the handle to advance the lockingpin into the mucosa, thereby attaching the capsule to the esophagus. The plunger was then rotated a quarter turn clockwise to release thecapsule from the delivery system. The delivery system was then withdrawn. Endoscopy was utilized for probe placement and diagnosticevaluation. Impressions/Post-Op Diagnosis: - Z-line irregular, 33 cm from the incisors. - Gastroesophageal flap valve classified as Hill Grade III (minimal fold, loose to endoscope, hiatal hernia likely). - 2 cm hiatal hernia. - Three gastric polyps. Biopsied. - Normal examined duodenum. - Biopsies were taken with a cold forceps for Helicobacter pylori testing. - The JUDD pH capsule was positioned 27 cm from the incisors, whichwas 6 cm proximal to the GE junction. Recommendation: - Further recommendations pending pathology results and Judd pHstudy results. Yolanda Kaplan MD 03/24/2024 10:40:44 AM This report has been signed electronically. Note Initiated On: 03/24/2024 10:07 AM Total Procedure Duration Time 0 hours 8 minutes 11 seconds us Yolanda Kaplan MD PROCEDURE ORD Final Res ult * XR UPPER GI (03/02/2024 10:04 AM HANDKERCHIEF SAMPLE CLERK) Anatomical Region Laterality Modality STOMACH Digital Radiogra phy, Computed Tomography 03/02/2024 11:2 3 AM HANDKERCHIEF SAMPLE CLERK Narrative 03/02/2024 11:23 AM HANDKERCHIEF SAMPLE CLERK For Patients: As a result of the Century Cures Act, medical imaging exams and procedure reports are released immediately into your electronic medical record. You may view this report before your referring provider. If you have questions, please contact your health care provider. INDICATION : Hiatal hernia, reflux without esophagitis. Preoperative evaluation. TECHNIQUE : Single contrast upper GI study with marshmallow bagel protocol. Fluoroscopy time: 3 minutes 42 seconds Number of images: 52 FINDINGS : Normal swallowing mechanics. Normal esophageal peristalsis. No visualized mass or stricture. Small hiatal hernia. Trace gastroesophageal reflux. Stomach and duodenum unremarkable. Normal positioning of ligament of Treitz in the upper left abdomen. Normal passage of marshmallow and bagel consistencies. IMPRESSION : 1. Small hiatal hernia with mild degree of gastroesophageal reflux. 2. Normal clearance of marshmallow and bagel consistencies. 3. No esophageal stricture or diverticula. Dictated by Robert Wharton MD @ Mar 02 2024 11:23AM (Electronically Signed) [email or web address] Procedure Note Robert Wharton MD - 03/02/2024 For Patients: As a result of the Cures Act, medical imagingexams and procedure reports are released immediately into your electronicmedical record. You may view this report before your referring provider.If you have questions, please contact your health care provider. INDICATION : Hiatal hernia, reflux without esophagitis. Preoperative evaluation. TECHNIQUE : Single contrast upper GI study with marshmallow bagel protocol. Fluoroscopy time: 3 minutes 42 seconds Number of images: 52 FINDINGS : Normal swallowing mechanics. Normal esophageal peristalsis. No visualized mass or stricture. Small hiatal hernia. Trace gastroesophageal reflux. Stomach and duodenum unremarkable. Normal positioning of ligament ofTreitz in the upper left abdomen. Normal passage of marshmallow and bagel consistencies. IMPRESSION : 1. Small hiatal hernia with mild degree of gastroesophageal reflux. 2. Normal clearance of marshmallow and bagel consistencies. 3. No esophageal stricture or diverticula. Dictated by Robert Wharton MD @ Mar 02 2024 11:23AM (Electronically Signed) [email or web address] Yolanda Kaplan MD FLUOROSCOPY Final Res ult * HPV HIGH RISK (01/23/2023 9:00 AM CDT) TYPE 16 Negative Negative 01/28/2023 2:33 PM CDT [facility] TYPE 18 Negative Negative 01/28/2023 2:33 PM CDT [facility] [employer] [facility] OTHER HIGH RISK TYPES Negative Negative 01/28/2023 2:33 PM CDT [facility] Other (Cervical) 01/23/2023 9:00 AM CDT 01/26/2023 2:04 PM CDT Narrative [facility] - 01/28/2023 2:33 PM CDT HPV types 16, 18, 31, 33, 35, 39, 45, 51, 52, 56, 58, 59, 66 and 68 DNA were undetectable or below the pre-set threshold. Methodology: Kevan Cara 4800 HPV Test us Karen Ortega STITCH BONDING MACHINE TENDER MICROBIOLOGY Final Res ult [facility] [address] [place] [id number], [place] * ANTI HIV 1/2 (03/05/2009 5:05 PM HANDKERCHIEF SAMPLE CLERK) ANTI HIV 1/2 Non-reacti ve [facility] Blood specimen (specimen) BLOOD SPECIMEN / Unknown 03/05/2009 5:05 PM HANDKERCHIEF SAMPLE CLERK 03/05/2009 4:59 PM HANDKERCHIEF SAMPLE CLERK us Sarah Gilliam MD SEND OUTS Final R esult [facility] INTERNAL ZIP [id number] [address] from Last 3 Months or Most Recently Relevant to Health Maintenance Insurance [facility] Advance Directives * Full Code (Latest Code Status on File) Date Activated Date Inactivated Comments 03/24/2024 9:42 AM 03/24/2024 1:26 PM Question Answer Comments Code Status Discussion: Unable to Assess Preferences, Provider to review later * Full Code Date Activated Date Inactivated Comments 04/21/2022 8:29 AM 04/21/2022 2:40 PM Question Answer Comments Code Status Discussion: Unable to Assess Preferences, Provider to review later Care Teams [employer] Cloth [employer]er Relationship Specialty Start Date End Date Sarah Gilliam MD [address] [place] [address] PCP - General 12/16/17 Nacho Leiva MD [address] [place] [address] Allergy and Immunology 08/02/18 Anu Vaz MD [address] [place] [address] Referring Provider Obstetrics and Gynecology 03/17/23
--- OUTSIDE RECORDS SUMMARY | 2024-05-24 06:06 | XMS_ITS | Referral Summary ---
Author Organization [facility] Address [address] [place] [id number] Care Team Providers Care Newspaper Writer Name Role Phone System, Provider Not In Primary Care Provider Un available 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 Tobacco Use Types Packs/Day Years Used Date Smoking Tobacco: Never Assessed Adolescent Education Answer Date Record ed Getting School Help Needed Not on file 01/10 Comments Unknown Sex and Gender Information Value Date Recorded Sex Assigned at Not on file Legal Sex Female 9:57 AM CLINICAL PARTNER Gender Identity Not on file Sexual Orientation Not on file Plan of Treatment Not on file Insurance [facility] CHO[facility] Care Teams Newspaper Writer Relationship Specialty Start Date End Date System, Provider Not In PCP - General Clinic 05/19/22
[2024-05-24 06:20] VITALS: BMI 37.2
[2024-05-24 06:31] VITALS: BP 110/70; PULSE 66; RESP 16; TEMP 36.8; O2SAT 97
[2024-05-24] MEDS: SODIUM CHLORIDE 0.9 % (FLUSH) 10 ML SYRINGE IVF (06:46)
[2024-05-24] MEDS: LACTATED RINGERS 500 ML 500 ML 100 ML IV (06:47)
[2024-05-24 06:51] LABS: Hemoglobin* 11.8 gm/dL (12.0-16.0)
[2024-05-24 07:00] LABS: Ur HCG Qualitative* Negative (Negative)
--- NOTE | 2024-05-24 07:09 | W.PM.H&PU ---
History & Physical Update History & Physical Update H&P Reviewed and patient assessed: No changes noted H&P Updates: Ms. Bergeron is seen in pre-op prior to planned hysteroscopy and possible polypectomy versus D&C in the setting of abnormal sonohysterogram at an outside facility. No interval change to her health history or questions today. We again reviewed the risks, benefits and alternatives to the planned procedure. Written consent was re-signed. Post-procedure restrictions and expectations reviewed. Pre-op labs reviewed and are within normal limits. No perioperative antibiotics indicated.
[2024-05-24] MEDS: BUPIVACAINE 0.5% 30 ML INJECTION (07:29)
[2024-05-24] MEDS: SILVER NITRATE APPLICATOR 1 EACH STICK..EA. TOPICAL (07:39)
--- NOTE | 2024-05-24 07:46 | W.PM.GYNPROC ---
Procedure Note Date of procedure: 05/24/24 Will [facility] bill your pro fee for this procedure?: Yes Pre-op diagnosis: Abnormal sonohysterogram Upcoming IVF cycle Procedure: Hysteroscopy, dilation and curettage with TruClear Anesthesia: MAC and local Complications: None Surgeon: Sabrina Vaz MD Estimated blood loss (mL): 10 IV fluids (mL): 350 Urine Output (mL): 50 Pathology: specimen obtained, sent to pathology Condition: stable Disposition: same day Findings: Unremarkable bilateral tubal ostia Proliferative endometrium versus sessile polypoid tissue, greatest along posterior fundal region No focal areas suspicious for distinct polyp nor retained products of conception Procedure Description: Procedure in detail: Patient was taken to the operating room with IV running. She was positioned in dorsal lithotomy position with her legs fully supported in Yellofin stirrups. Monitored anesthesia care was administered. She was prepped and draped in the usual sterile fashion. Exam under anesthesia was performed for the above-noted findings. In and out catheterization was performed. Speculum was inserted. Cervix visualized and grasped along the anterior lip with a single-tooth tenaculum. Paracervical block was administered in the usual fashion with a total of 20 mL of 0.5% Marcaine. Cervix was serially dilated to accommodate the TRUCLEAR hysteroscope. This was assembled with saline inflow and outflow in place. The line was flushed of bubbles. The hysteroscope was advanced through the cervix into the endometrial cavity for the above noted findings. The tissue morcellator was then inserted through the operating channel. Window lock was performed. Under direct visualization, the endometrial cavity was circumferentially curetted with the tissue morcellator. The hysteroscope and morcellator were then removed from the uterus. Tenaculum was removed from the anterior lip of cervix. Hemostasis was achieved at tenaculum site with pressure and silver nitrite. Hemostasis was noted. Patient tolerated procedure well. She was taken to recovery area in stable condition. The brief completed with the above details - fluid deficit of 15mL, IV fluid 350 mL, urine output 50 mL, QBL 10 mL. Specimen is endometrial curetting sent for pathologic evaluation.
--- NOTE | 2024-05-24 07:49 | P.ANES_ITS ---
Anesthesia Charges Start Date/Time Anesthesia Start Date: 05/24/24 Anesthesia Start Time: 07:13 Stop Date/Time Anesthesia Stop Date: 05/24/24 Anesthesia Stop Time: 07:51 Coding CPT Codes CPT Codes: ANESTH HYSTEROSCOPE/GRAPH - 41024 ([id number]) P2 - PATIENT W/MILD SYST DISEASE, QK - LEAF BINNER 2-4 CNCRNT ANES PROC, QX - RUBBER FLAP TUBER MACHINE OPERATOR SVC W/ MD MED DIRECTION
--- NOTE | 2024-05-24 07:49 | W.ANESCHARGE ---
Anesthesia Charges Start Date/Time Anesthesia Start Date: 05/24/24 Anesthesia Start Time: 07:13 Stop Date/Time Anesthesia Stop Date: 05/24/24 Anesthesia Stop Time: 07:51 Coding CPT Codes CPT Codes: ANESTH HYSTEROSCOPE/GRAPH - 09162 ([id number]) P2 - PATIENT W/MILD SYST DISEASE, QK - INSTALLATION DRAFTER 2-4 CNCRNT ANES PROC, QX - ASSOCIATE PROFESSOR OF CHURCH MUSIC SVC W/ MD MED DIRECTION
[2024-05-24 07:51] VITALS: BP 117/63; PULSE 68; RESP 14; TEMP 36.3; O2SAT 95
[2024-05-24 08:00] VITALS: BP 120/66; PULSE 68; RESP 14; O2SAT 99
[2024-05-24 08:15] VITALS: BP 114/75; PULSE 66; RESP 14; O2SAT 98
--- NOTE | 2024-05-24 08:42 | SUR.PHASEII ---
pt tolerated crackers and juice, denies pain. Minimal bloody drainage on peripad. Ambulated with RN out to car. Her aunt is her sales driver home.
--- NOTE | 2024-05-24 08:57 | P.ANES_ITS ---
Anesthesia Charges Start Date/Time Anesthesia Start Date: 05/24/24 Anesthesia Start Time: 07:13 Stop Date/Time Anesthesia Stop Date: 05/24/24 Anesthesia Stop Time: 07:51 Coding CPT Codes CPT Codes: ANESTH HYSTEROSCOPE/GRAPH - 50560 ([id number]) QK - CHANNEL CEMENTER 2-4 CNCRNT ANES PROC, QX - LOCAL [employer] REFRIGERATED TRUCK DRIVER SVC W/ MD MED DIRECTION, P2 - PATIENT W/MILD SYST DISEASE
--- NOTE | 2024-05-24 08:57 | W.ANESCHARGE ---
Anesthesia Charges Start Date/Time Anesthesia Start Date: 05/24/24 Anesthesia Start Time: 07:13 Stop Date/Time Anesthesia Stop Date: 05/24/24 Anesthesia Stop Time: 07:51 Coding CPT Codes CPT Codes: ANESTH HYSTEROSCOPE/GRAPH - 86443 ([id number]) QK - CASE WORKER 2-4 CNCRNT ANES PROC, QX - MECHANICAL PRODUCT DESIGN ENGINEER SVC W/ MD MED DIRECTION, P2 - PATIENT W/MILD SYST DISEASE
== END 2024-05-24 08:43 | disposition home or self-care (01) ==
PROVIDERS: PCP Family Medicine; Visit Provider Obstetrics & Gynecology
PROC: 0UDB8ZZ Extraction of Endometrium, Via Natural or Artificial Opening Endoscopic (ICD-10-PCS; CPT 58558; principal; 2024-05-24 07:30)
DX: R93.89 Abnormal findings on diagnostic imaging of other specified body structures (principal)
CPT/HCPCS: 58558; 00952; 36415; 81025; 85018; 86850; 86900; 86901; 88305; A9270; C1782; J0665; J1100; J1885; J2250; J2405; J2704; J3010; J7120